=== PATIENT | female | born 1945 | race American Indian/Alaskan Native ===

== ENCOUNTER 2017-12-20 10:48 | Emergency (ER) | payer MEDICARE, MEDICAID ==
[2017-12-20 10:50] VITALS: BMI 34.7
[2017-12-20 10:56] VITALS: BP 168/72; PULSE 85; RESP 20; TEMP 98.7; O2SAT 93
== END 2017-12-20 11:06 | disposition left against medical advice (07) ==
LOC: MERGE 10:48 → ED 10:48
DX: Z02.89 Encounter for other administrative examinations (principal); R05 Cough

== ENCOUNTER 2018-01-17 10:10 | Inpatient (IN) | payer MEDICAID, MEDICARE, OTHER ==
[2018-01-17 10:26] VITALS: BMI 35.1
[2018-01-17 11:35] LABS: BASO # 0.04 K/mm3 (0.0-2.0); BASO % 0.2 % (0.0-3.0); EOS # 1.8 (0.0-0.7); GRAN # 15.53 (1.4-6.5); GRAN % 67.7 % (50.0-68.0); HEMOGLOBIN 12.1 g/dL (12.0-16.0); LYMPH # 4.5 (1.2-3.4); LYMPH % 19.4 % (22.0-35.0); MEAN CELL VOLUME 88.2 fl (80.0-105.0); MEAN CORPUSCULAR HEMOGLOBIN 27.4 pg (25.0-35.0); MEAN PLATELET VOLUME 10.2 fl (7.0-11.0); MONO # 1.1 (0.1-0.6); MONO % 4.7 % (1.0-6.0); RBC 4.42 10^6/uL (3.5-6.1); RED CELL DISTRIBUTION WIDTH 14.2 % (11.5-14.5)
[2018-01-17] MEDS ORDERED: Azithromycin 500MG/NS 250ml 500 MG/250 ML BAG IVPB STA (12:16)
[2018-01-17] MEDS ORDERED: cefTRIAXone 1 gm 1 GM/100 ML BAG IVPB STA (12:17)
[2018-01-17] MEDS ORDERED: Albuterol-Ipratrop 3 mg / 0.5 (3 ml) UD IH STA (12:17)
--- NOTE | 2018-01-17 12:32 | RAD ---
HISTORY: cough r/o infiltrate COMPARISON: Chest radiographs 12/20/2017 TECHNIQUE: Chest PA and lateral FINDINGS: LUNGS: No active pulmonary disease. PLEURA: No significant pleural effusion identified. No pneumothorax apparent. CARDIOVASCULAR: Normal. OSSEOUS STRUCTURES: No significant abnormalities. VISUALIZED UPPER ABDOMEN: Normal. OTHER FINDINGS: None. IMPRESSION: No interval acute cardiopulmonary disease appreciated.
[2018-01-17 12:57] LABS: ALB/GLOB RATIO 1.1 (1.1-1.8); ALBUMIN 4.4 g/dL (3.0-4.8); CALCIUM 10.5 mg/dL (8.4-10.5)
[2018-01-17] MEDS ORDERED: Magnesium Sulfate 2 GM in Sodium Chloride 0.9% 100 ML IVPB ONE (12:59)
[2018-01-17] MEDS: Albuterol-Ipratrop 3 mg / 0.5 (3 ml) UD IH SCH ×4 (13:06→19:41)
[2018-01-17 13:15] LABS: B-TYPE NATRIURETIC PEPTIDE 78.5 pg/mL (0-450)
[2018-01-17 14:16] LABS: TROPONIN I 0.01 ng/mL
--- NOTE | 2018-01-17 14:36 | ED PDOC ---
Arrival/HPI - General Chief Complaint: Cough, Cold, Congestion Time Seen by Provider: 01/17/18 10:30 Historian: Patient - History of Present Illness Narrative History of Present Illness (Text): 01/17/18 14:33 Dolly Reyna is a 72 year old female sent by the clinic fro progressive cough and wheeze for 1-2 months. Patient reports slight shortness of breath. Patient was given cough medication and antibiotics with the clinic with minimal relief. Patient denies smokinh, history of COPD or asthma, any fevers, chills, chest pain, abdominal pain, nausea, vomiting, diarrhea, back pain, neck pain, urinary symptoms, headache, dizziness, or any other complaint. Time/Duration: > month (1-2 months) Symptom Onset: Gradual Symptom Course: Unchanged Context: Home Past Medical History - Provider Review Nursing Documentation Reviewed: Yes - Cardiac Hx Hypertension: Yes - Pulmonary Hx Respiratory Disorders: No Hx Chronic Obstructive Pulmonary Disease (COPD): Yes - Neurological Hx Neurological Disorder: No - HEENT Hx HEENT Disorder: No - Renal Hx Renal Disorder: No - Endocrine/Metabolic Hx Diabetes Mellitus Type 2: Yes - Hematological/Oncological Hx Blood Disorders: No - Integumentary Hx Dermatological Disorder: No - Musculoskeletal/Rheumatological Hx Musculoskeletal Disorders: No - Gastrointestinal Hx Gastrointestinal Disorders: No - Genitourinary/Gynecological Hx Genitourinary Disorders: No - Psychiatric Hx Psychophysiologic Disorder: No Hx Substance Use: No - Surgical History Hx Hysterectomy: Yes - Suicidal Assessment Feels Threatened In Home Enviroment: No Family/Social History - Physician Review Nursing Documentation Reviewed: Yes Family/Social History: Unknown Family HX Smoking Status: Never Smoked Hx Alcohol Use: No Hx Substance Use: No Allergies/Home Meds Allergies/Adverse Reactions: Allergies No Known Allergies Allergy (Verified 01/17/18 10:16) Home Medications: Home Meds Medication Instructions Recorded Confirmed Lovastatin 40 mg PO DAILY 03/11/14 01/17/18 Gabapentin [Neurontin] 300 mg PO DAILY 12/20/17 01/17/18 GlipiZIDE [Glucotrol] 5 mg PO TID 12/20/17 01/17/18 Insulin Glargine, Recombina 25 unit INJ DAILY 12/20/17 01/17/18 [Lantus] Acarbose [Precose] 50 mg PO TID 01/17/18 01/17/18 Aspirin 325 mg PO DAILY 01/17/18 01/17/18 Hydrochlorothiazide [Microzide] 25 mg PO DAILY 01/17/18 01/17/18 Loratadine [Allerclear] 10 mg PO DAILY 01/17/18 01/17/18 Metoprolol Tartrate [Lopressor] 50 mg PO BID 01/17/18 01/17/18 amLODIPine [Norvasc] 5 mg DAILY 01/17/18 01/17/18 Review of Systems - Physician Review All systems were reviewed & negative as marked: Yes - Review of Systems Constitutional: Normal. absent: Fevers Eyes: Normal ENT: Normal Respiratory: Cough Cardiovascular: Normal. absent: Chest Pain, Palpitations Gastrointestinal: Normal. absent: Abdominal Pain, Diarrhea, Nausea, Vomiting Genitourinary Female: Normal. absent: Dysuria, Frequency, Hematuria, Urine Output Changes Musculoskeletal: Normal. absent: Back Pain, Neck Pain Skin: Normal. absent: Rash Neurological: Normal. absent: Headache, Dizziness Endocrine: Normal Hemo/Lymphatic: Normal Psychiatric: Normal Physical Exam Vital Signs Reviewed: Yes Vital Signs Temp Pulse Resp BP Pulse Ox 01/17/18 16:05 98.0 F 80 18 138/90 94 L 01/17/18 16:04 98.0 F 80 19 139/89 94 L 01/17/18 13:55 79 20 137/68 100 01/17/18 12:55 75 18 134/73 98 01/17/18 10:17 98.3 F 67 20 155/81 H 94 L Temperature: Afebrile Blood Pressure: Hypertensive Pulse: Regular Respiratory Rate: Normal Appearance: Positive for: Well-Appearing, Non-Toxic, Comfortable Pain Distress: None Mental Status: Positive for: Alert and Oriented X 3 Finger Stick Blood Glucose: 101 - Systems Exam Head: Present: Atraumatic, Normocephalic Pupils: Present: PERRL Extroacular Muscles: Present: EOMI Conjunctiva: Present: Normal Mouth: Present: Moist Mucous Membranes Neck: Present: Normal Range of Motion Respiratory/Chest: Present: Wheezes (wheeze bilaterally). No: Respiratory Distress, Accessory Muscle Use Cardiovascular: Present: Regular Rate and Rhythm, Normal S1, S2. No: Murmurs Abdomen: Present: Normal Bowel Sounds. No: Tenderness, Distention, Peritoneal Signs Back: Present: Normal Inspection Upper Extremity: Present: Normal Inspection. No: Cyanosis, Edema Lower Extremity: Present: Normal Inspection. No: Edema Neurological: Present: GCS=15, CN II-XII Intact, Speech Normal Skin: Present: Warm, Dry, Normal Color. No: Rashes Psychiatric: Present: Alert, Oriented x 3, Normal Insight, Normal Concentration Medical Decision Making ED Course and Treatment: 01/17/18 14:39 Impression: 72 year old female complaining of a progressive cough and wheeze for 1-2 months. Plan: -- EKG -- Duoneb -- Magnesium Sulfate -- SOLU-Medrol -- Rocephin -- Zithromax -- Blood Culture -- Reassess and disposition Progress Notes: EKG reviewed, shows Sinus at 68 bpm. Left axis deviation Pt feels better after emergency department treatment Case discussed with Dr. Arriaga, who is aware and agrees with plan. Accepts pt into his service. Admits pt to hospital service on medical floor. - Lab Interpretations Lab Results: 01/17/18 11:15 01/17/18 11:00 Lab Results 01/17/18 13:11: POC Glucose (mg/dL) 101 01/17/18 11:30: Influenza Typ A,B (EIA) Negative for flu a/b 01/17/18 11:15: WBC 23.0 H, RBC 4.42, Hgb 12.1, Hct 39.0, MCV 88.2, MCH 27.4, MCHC 31.0, RDW 14.2, Plt Count 413, MPV 10.2, Gran % 67.7, Lymph % (Auto) 19.4 L , [place] % (Auto) 4.7, Eos % (Auto) 8.0 H, Baso % (Auto) 0.2, Gran # 15.53 H, Lymph # (Auto) 4.5 H, [place] # (Auto) 1.1 H, Eos # (Auto) 1.8 H, Baso # (Auto) 0.04 01/17/18 11:00: Sodium 141, Potassium 4.2, Chloride 100, Carbon Dioxide 33, Anion Gap 13, BUN 22 H, Creatinine 1.1, Est GFR ( Amer) 59, Est GFR (Non- Af Amer) 49, Random Glucose 48 L*, Calcium 10.5, Magnesium 2.0, Total Bilirubin 0.2, AST 28, ALT 25, Alkaline Phosphatase 89, Lactate Dehydrogenase 572, Total Creatine Kinase 207, Troponin I 0.01, NT-Pro-B Natriuret Pep 78.5, Total Protein 8.3, Albumin 4.4, Globulin 3.9, Albumin/Globulin Ratio 1.1 - RAD Interpretation Radiology Orders: 01/17/18 10:31 CHEST TWO VIEWS (PA/LAT) [RAD] Stat 01/17/18 15:23 CHEST W/O & HIGH RES CHEST [CT] Routine - Medication Orders Current Medication Orders: Acetaminophen (Tylenol 325mg Tab) 650 mg PO Q4 PRN PRN Reason: Fever >100.4 F Albuterol/Ipratropium (Duoneb 3 Mg/0.5 Mg (3 Ml) Ud) 3 ml IH [id number] TABITHA Albuterol/Ipratropium (Duoneb 3 Mg/0.5 Mg (3 Ml) Ud) 3 ml IH Q2H PRN PRN Reason: Shortness of Breath Amlodipine Besylate (Norvasc) 5 mg PO DAILY TABITHA Aspirin (Aspirin) 325 mg PO DAILY TABITHA Atorvastatin Calcium (Lipitor) 10 mg PO DIN TABITHA Gabapentin (Neurontin) 300 mg PO DAILY TABITHA PRN Reason: Protocol Heparin Sodium (Porcine) (Heparin) 5,000 units SC Q8 TABITHA PRN Reason: Protocol Hydrochlorothiazide (Hydrodiuril) 25 mg PO DAILY TABITHA Ceftriaxone Sodium (Rocephin 1 Gram Ivpb) 1 gm in 100 mls @ 100 mls/hr IVPB DAILY TABITHA PRN Reason: Protocol Azithromycin (Zithromax 500mg In Ns) 500 mg in 250 mls @ 167 mls/hr IVPB DAILY TABITHA PRN Reason: Protocol Insulin Human Regular (Humulin R Low) 0 units SC ACHS TABITHA PRN Reason: Protocol Last Admin: 01/17/18 16:50 Dose: 2 units MAR Blood Glucose Document 01/17/18 16:50 DSZ (Rec: 01/17/18 16:50 DSZ [facility] [id number]) Blood Glucose Finger Stick Blood Glucose (70-120) 239 Subcutaneous Administrations Document 01/17/18 16:50 DSZ (Rec: 01/17/18 16:50 DSZ [facility] [id number]) Injection Site MAR Injection Site Right Abdomen Charges for Administration # of Subcutaneous Administrations 1 Methylprednisolone (Solu-Medrol) 40 mg IVP Q8 [facility] Metoprolol Tartrate (Lopressor) 50 mg PO BID [facility] Ondansetron HCl (Zofran Inj) 4 mg IVP Q4H PRN PRN Reason: Nausea/Vomiting Pantoprazole Sodium (Protonix Ec Tab) 40 mg PO 0600 [facility] Discontinued Medications Albuterol/Ipratropium (Duoneb 3 Mg/0.5 Mg (3 Ml) Ud) 3 ml IH STAT STA Stop: 01/17/18 12:18 Last Admin: 01/17/18 12:46 Dose: 3 ml Albuterol/Ipratropium (Duoneb 3 Mg/0.5 Mg (3 Ml) Ud) 3 ml IH Q15M TABITHA Stop: 01/17/18 13:31 Last Admin: 01/17/18 13:29 Dose: 3 ml Amlodipine Besylate (Norvasc) 5 mg PO STAT STA Stop: 01/17/18 17:40 Hydrochlorothiazide (Hydrodiuril) 25 mg PO STAT STA Stop: 01/17/18 17:40 Ceftriaxone Sodium (Rocephin 1 Gram Ivpb) 1 gm in 100 mls @ 100 mls/hr IVPB STAT STA PRN Reason: Protocol Stop: 01/17/18 13:16 Last Admin: 01/17/18 12:45 Dose: 100 mls/hr eMAR Start Stop Document 01/17/18 12:45 SRE (Rec: 01/17/18 12:46 SRE [id number]) Intravenous Solution Start Date 01/17/18 Start Time 12:40 End Date 01/17/18 End time 13:40 Total Infusion Time 60 Azithromycin (Zithromax 500mg In Ns) 500 mg in 250 mls @ 167 mls/hr IVPB STAT STA PRN Reason: Protocol Stop: 01/17/18 13:45 Last Admin: 01/17/18 13:36 Dose: 167 mls/hr eMAR Start Stop Document 01/17/18 13:36 SRE (Rec: 01/17/18 13:37 SRE [id number]) Intravenous Solution Start Date 01/17/18 Start Time 13:36 End Date 01/17/18 End time 15:10 Total Infusion Time 94 Magnesium Sulfate 2 gm/ Sodium (Chloride) 104 mls @ 102 mls/hr IVPB ONCE ONE Stop: 01/17/18 14:00 Last Admin: 01/17/18 13:15 Dose: 102 mls/hr eMAR Start Stop Document 01/17/18 13:15 SRE (Rec: 01/17/18 13:15 SRE [id number]) Intravenous Solution Start Date 01/17/18 Start Time 13:15 End Date 01/17/18 End time 14:15 Total Infusion Time 60 Methylprednisolone (Solu-Medrol) 125 mg IVP STAT STA Stop: 01/17/18 12:59 Last Admin: 01/17/18 13:06 Dose: 125 mg IVP Administration Document 01/17/18 13:06 SRE (Rec: 01/17/18 13:06 SRE [id number]) Charges for Administration # of IVP Administrations 1 - Scribe Statement The provider has reviewed the documentation as recorded by the Scribe Mercy Amezquita All medical record entries made by the Scribe were at my direction and personally dictated by me. I have reviewed the chart and agree that the record accurately reflects my personal performance of the history, physical exam, medical decision making, and the department course for this patient. I have also personally directed, reviewed, and agree with the discharge instructions and disposition. Disposition/Present on Arrival - Present on Arrival Any Indicators Present on Arrival: No History of DVT/PE: No History of Uncontrolled Diabetes: No Urinary Catheter: No History of Decub. Ulcer: No History Surgical Site Infection Following: None - Disposition Have Diagnosis and Disposition been Completed?: Yes Diagnosis: Bronchitis, Pneumonia Disposition: HOSPITALIZED Disposition Time: 13:00 Condition: STABLE
[2018-01-17] MEDS ORDERED: Albuterol-Ipratrop 3 mg / 0.5 (3 ml) UD IH PRN (15:03)
[2018-01-17 15:47] LABS: ARTERIAL BLOOD GAS HCO3 27.1 mmol/L (21-28); ARTERIAL BLOOD GAS O2 SAT 91.5 % (95-98); ARTERIAL BLOOD GAS PCO2 49 mm/Hg (35-45); ARTERIAL BLOOD GAS PH 7.35 (7.35-7.45); ARTERIAL BLOOD GAS TCO2 28.6 mmol.L (22-28)
--- NOTE | 2018-01-17 15:57 | CP.PCM.HP ---
<Jayna Martin - Last Filed: 01/17/18 17:38> History of Present Illness - History of Present Illness History of Present Illness: CC: Cough for 2 months. Patient is a 72 y/o with PMHx of htn, insulin dependent diabetes mellitus, hld, mental retardation presenting with non productive cough for 2 months. As per patient's sister, the cough has been getting worst and is now accompanied with wheezes. Patient saw PMD, was prescribed inhalers with no improvement. Patient was at the urgent care and was transferred over to the ED by Dr Avendano. Patient and patient's sister denies fever, chills, no chest pain, no shortness of breath. Cough is worst at night. Denies pillow orthopnea. No history of CAD, stress tests or cardiac cath. Patient barely ambulates due to gait instability, however, denies excertional dyspnea. No history of tobacco abuse, denies second hand smoking. No occupational exposure. In the ED glucose was 48. Patient last injected insulin last night, states she uses 52 unit before bed time and ate breakfast this morning. Patient was also noted to be wheezing, was sating in the 94-98 on room air. Patient was giving solu-medrol and abx. PMHx: IDDM2, HTN, mental retardation, neuropathy PSHx: hysterectomy FMHx: denies family history of cancers Social: denies tobacco, alcohol and illicit drug use. Walks with a cane. Home meds: as per chart. Allergy: NKDA. Present on Admission - Present on Admission Any Indicators Present on Admission: Yes History of DVT/PE: No History of Uncontrolled Diabetes: Yes Urinary Catheter: No Decubitus Ulcer Present: No Review of Systems - Constitutional Constitutional: absent: Chills, Fatigue, Fever, Headache, Lethargy, Malaise, Night Sweats, Snoring, Weight Gain, Weight Loss, Weakness - EENT Eyes: absent: Blurred Vision Ears: absent: Disequilibrium Nose/Mouth/Throat: absent: Dysphagia, Halitosis, Hoarsness, Sore Throat - Cardiovascular Cardiovascular: absent: Chest Pain, Chest Pain at Rest, Chest Pain with Activity , Claudication, Dyspnea, Dyspnea on Exertion, Irregular Heart Rhythm, Leg Edema , Leg Ulcers, Lightheadedness, Orthopnea, Palpitations, Paroxysmal Nocturnal Dyspnea, Pedal Edema, Radiating Pain, Rapid Heart Rate, Slow Heart Rate, Syncope - Respiratory Respiratory: Cough, Wheezing. absent: Dyspnea, Hemoptysis, Snoring, Stridor, Pain on Inspiration, Excessive Mucous Production, Change in Mucous Color, Pain with Coughing - Gastrointestinal Gastrointestinal: absent: Abdominal Pain, Belching, Bloating, Constipation, Cramping, Diarrhea, Dyspepsia, Dysphagia, Heartburn, Hematemesis, Nausea, Odynophagia - Genitourinary Genitourinary: absent: Difficulty Urinating, Dysuria, Hematuria, Urinary Urgency - Musculoskeletal Musculoskeletal: Abnormal Gait, Other (Uses a cane to ambulate.) - Neurological Neurological: absent: Dizziness, Headaches - Psychiatric Psychiatric: Other (Mental retardation) Past Patient History - Infectious Disease Hx of Infectious Diseases: None - Tetanus Immunizations Tetanus Immunization: Unknown - Past Medical History & Family History Past Medical History?: Yes - Past Social History Smoking Status: Never Smoked Alcohol: None Drugs: Denies Home Situation {Lives}: With Family - CARDIAC Hx Hypertension: Yes - PULMONARY Hx Respiratory Disorders: No Hx Chronic Obstructive Pulmonary Disease (COPD): Yes - NEUROLOGICAL Hx Neurological Disorder: No - HEENT Hx HEENT Problems: No - RENAL Hx Chronic Kidney Disease: No - ENDOCRINE/METABOLIC Hx Diabetes Mellitus Type 2: Yes - HEMATOLOGICAL/ONCOLOGICAL Hx Blood Disorders: No - INTEGUMENTARY Hx Dermatological Problems: No - MUSCULOSKELETAL/RHEUMATOLOGICAL Hx Musculoskeletal Disorders: No - GASTROINTESTINAL Hx Gastrointestinal Disorders: No - GENITOURINARY/GYNECOLOGICAL Hx Genitourinary Disorders: No - PSYCHIATRIC Hx Psychophysiologic Disorder: No Hx Substance Use: No - SURGICAL HISTORY Hx Hysterectomy: Yes Meds Allergies/Adverse Reactions: Allergies Allergy/AdvReac Type Severity Reaction Status Date / Time No Known Allergies Allergy Verified 01/17/18 10:16 Physical Exam - Constitutional Appears: No Acute Distress, Chronically Ill - Head Exam Head Exam: ATRAUMATIC, NORMAL INSPECTION, NORMOCEPHALIC - Eye Exam Eye Exam: EOMI, Normal appearance, PERRL. absent: Scleral icterus Pupil Exam: NORMAL ACCOMODATION, PERRL - ENT Exam ENT Exam: Mucous Membranes Moist - Neck Exam Neck exam: Positive for: Normal Inspection - Respiratory Exam Respiratory Exam: Decreased Breath Sounds (at the bases.), Wheezes (at the apices carmen), NORMAL BREATHING PATTERN. absent: Accessory Muscle Use, Chest Wall Tenderness, Prolonged Expiratory Phase, Rales, Rhonchi, Respiratory Distress, Stridor - Cardiovascular Exam Cardiovascular Exam: REGULAR RHYTHM, RRR, +S1, +S2. absent: Bradycardia, Tachycardia, Diastolic murmur, Gallop, Irregular Rhythm, JVD, Rubs, Systolic Murmur - GI/Abdominal Exam GI & Abdominal Exam: Normal Bowel Sounds, Soft. absent: Diminished Bowel Sounds , Distended (obese abdomen.), Firm, Guarding, Hernia, Mass, Rebound, Rigid, Tenderness - Extremities Exam Extremities exam: Positive for: normal inspection. Negative for: pedal edema, tenderness - Back Exam Back exam: NORMAL INSPECTION - Neurological Exam Neurological exam: Alert, Oriented x3, Reflexes Normal - Psychiatric Exam Psychiatric exam: Normal Affect, Normal Mood - Skin Skin Exam: Dry, Normal Color, Warm Results - Vital Signs Recent Vital Signs: Last Vital Signs Temp 98.3 F 01/17/18 10:17 Pulse 79 01/17/18 13:55 Resp 20 01/17/18 13:55 BP 137/68 01/17/18 13:55 Pulse Ox 100 01/17/18 13:55 - Labs Result Diagrams: 01/17/18 11:15 01/17/18 11:00 Labs: Laboratory Results - last 24 hr 01/17/18 15:44 pCO2 49 H pO2 53.0 L HCO3 27.1 ABG pH 7.35 ABG Total CO2 28.6 H ABG O2 Saturation 91.5 L ABG Base Excess 0.8 ABG Potassium 4.0 Sodium 139.0 Chloride 105.0 Glucose 226 H Lactate 2.8 H FiO2 21.0 Arterial Blood Potassium 4.0 - EKG Data EKG Interpreted by: Myself EKG shows normal: Sinus rhythm, ST-T waves (Non sepcific ST/T wave changes.) Rate: Normal Assessment & Plan - Assessment and Plan (Free Text) Assessment: Patient is a 72 y/o with PMHx of htn, insulin dependent diabetes mellitus, mental retardation presenting with non productive cough for 2 months, failed outpatient treatment. Plan: 1) Non productive cough- likely due to COPD exacerbation, R/o pneumonia - R/o malignancy, r/o atypical ACS presentation, versus adult onset asthma/Gerd - Less likely CHF due to normal pro-bnp, less likely ACEI induced cough. - Will obtain procal - Will obtain echo to rule out valvular component. - Chest x-ray with non specific diffuse infiltrations on the right side, - will obtain high resolution CT to evaluate lung parenchyma - Influenza negative - Will start solumedrol 40 q8 for possible copd exacerbation - Rocephin/Zithromax for possible pneumonia pending procal. - Duoneb standing dose and prn - ABG with likely mixed venous blood, patient appears comfortable, will consider nasal cannula prn. - Will consider pulm consult, an PFTs depending on the above work up. 2) Leukocytosis and mildly elevated lactic acid, r/o sepsis - Afebrile, and no tachycardia. - will obtain ua, blood and urine culture - on rocephin and zithromax - tylenol pro for fever 3) Uncontrolled diabetes mellitus - Glucose on presentation was 48, which improved with po intake - will hold off home insulin and po meds - Obtain hgba1c - will consider adding levemir. - Insulin sliding scale, and fingerstick achs - Carbohydrate controlled diet. 4) HTN- will resume htcz, Norvasc and lopressor. - Patient is also on high dose asa at home, will resume. 5) Neuropathy- will resume home gabapentin 6) HLD- continue with Lipitor 7) DVT/Gi prophylaxis: heparin sc and protonix. 8) Gait instability- PT eval. Patient seen, examined and case discussed with Dr Ness. - Date & Time Date: 01/17/18 Time: 17:00 <Rosalina Ness - Last Filed: 01/18/18 10:51> Results - Vital Signs Recent Vital Signs: Last Vital Signs Temp 98.2 F 01/18/18 06:00 Pulse 87 01/18/18 10:10 Resp 18 01/18/18 06:00 BP 155/85 H 01/18/18 10:10 Pulse Ox 96 01/18/18 06:00 - Labs Result Diagrams: 01/18/18 07:00 01/18/18 07:00 Labs: Laboratory Results - last 24 hr 01/17/18 01/17/18 01/17/18 15:44 16:22 17:10 WBC RBC Hgb Hct MCV MCH MCHC RDW Plt Count MPV Gran % Lymph % (Auto) Citrus % (Auto) Eos % (Auto) Baso % (Auto) Gran # Lymph # (Auto) Citrus # (Auto) Eos # (Auto) Baso # (Auto) Neutrophils % (Manual) Lymphocytes % (Manual) Monocytes % (Manual) Platelet Evaluation pCO2 49 H pO2 53.0 L HCO3 27.1 ABG pH 7.35 ABG Total CO2 28.6 H ABG O2 Saturation 91.5 L ABG Base Excess 0.8 ABG Potassium 4.0 VBG pH VBG pCO2 VBG HCO3 VBG Total CO2 VBG O2 Sat (Calc) VBG Base Excess VBG Potassium Sodium 139.0 Chloride 105.0 Glucose 226 H Lactate 2.8 H FiO2 21.0 Potassium Carbon Dioxide Anion Gap BUN Creatinine Est GFR ( Amer) Est GFR (Non-Af Amer) POC Glucose (mg/dL) 239 H Random Glucose Lactic Acid Calcium Troponin I Procalcitonin 0.07 L Arterial Blood Potassium 4.0 Venous Blood Potassium Urine Color Urine Appearance Urine pH Ur Specific Geddes Urine Protein Urine Glucose (UA) Urine Ketones Urine Blood Urine Nitrate Urine Bilirubin Urine Urobilinogen Ur Leukocyte Esterase Urine RBC Urine WBC Ur Epithelial Cells Amorphous Sediment Urine Bacteria 01/17/18 01/17/18 01/17/18 17:10 19:10 20:44 WBC RBC Hgb Hct MCV MCH MCHC RDW Plt Count MPV Gran % Lymph % (Auto) Citrus % (Auto) Eos % (Auto) Baso % (Auto) Gran # Lymph # (Auto) Citrus # (Auto) Eos # (Auto) Baso # (Auto) Neutrophils % (Manual) Lymphocytes % (Manual) Monocytes % (Manual) Platelet Evaluation pCO2 pO2 46 HCO3 ABG pH ABG Total CO2 ABG O2 Saturation ABG Base Excess ABG Potassium VBG pH 7.35 VBG pCO2 49.0 VBG HCO3 27.1 VBG Total CO2 28.6 H VBG O2 Sat (Calc) 86.7 H VBG Base Excess 0.8 VBG Potassium 4.8 Sodium 135.0 Chloride 98.0 Glucose 402 H* D Lactate 4.1 H* FiO2 21.0 Potassium Carbon Dioxide Anion Gap BUN Creatinine Est GFR ( Amer) Est GFR (Non-Af Amer) POC Glucose (mg/dL) 410 H* Random Glucose Lactic Acid Calcium Troponin I < 0.01 Procalcitonin Arterial Blood Potassium Venous Blood Potassium 4.8 Urine Color Urine Appearance Urine pH Ur Specific Geddes Urine Protein Urine Glucose (UA) Urine Ketones Urine Blood Urine Nitrate Urine Bilirubin Urine Urobilinogen Ur Leukocyte Esterase Urine RBC Urine WBC Ur Epithelial Cells Amorphous Sediment Urine Bacteria 01/17/18 01/18/18 01/18/18 20:50 01:05 03:03 WBC RBC Hgb Hct MCV MCH MCHC RDW Plt Count MPV Gran % Lymph % (Auto) Citrus % (Auto) Eos % (Auto) Baso % (Auto) Gran # Lymph # (Auto) Citrus # (Auto) Eos # (Auto) Baso # (Auto) Neutrophils % (Manual) Lymphocytes % (Manual) Monocytes % (Manual) Platelet Evaluation pCO2 pO2 HCO3 ABG pH ABG Total CO2 ABG O2 Saturation ABG Base Excess ABG Potassium VBG pH VBG pCO2 VBG HCO3 VBG Total CO2 VBG O2 Sat (Calc) VBG Base Excess VBG Potassium Sodium Chloride Glucose Lactate FiO2 Potassium Carbon Dioxide Anion Gap BUN Creatinine Est GFR ( Amer) Est GFR (Non-Af Amer) POC Glucose (mg/dL) 315 H Random Glucose Lactic Acid Calcium Troponin I < 0.01 Procalcitonin Arterial Blood Potassium Venous Blood Potassium Urine Color Yellow Urine Appearance Clear Urine pH 6.0 Ur Specific Geddes 1.020 Urine Protein 30 H Urine Glucose (UA) >=1000 Urine Ketones Trace H Urine Blood Moderate H Urine Nitrate Negative Urine Bilirubin Negative Urine Urobilinogen 0.2 Ur Leukocyte Esterase Negative Urine RBC 10 - 15 Urine WBC 0 - 2 Ur Epithelial Cells 4 - 5 Amorphous Sediment Few Urine Bacteria Small 01/18/18 01/18/18 01/18/18 07:00 07:00 07:00 WBC 29.6 H* D RBC 4.09 Hgb 11.1 L Hct 34.7 L MCV 84.8 D MCH 27.1 MCHC 32.0 RDW 13.8 Plt Count 458 H MPV 10.1 Gran % 91.2 H Lymph % (Auto) 6.9 L Citrus % (Auto) 1.8 Eos % (Auto) 0.0 L Baso % (Auto) 0.1 Gran # 27.01 H Lymph # (Auto) 2.1 Citrus # (Auto) 0.5 Eos # (Auto) 0.0 Baso # (Auto) 0.02 Neutrophils % (Manual) 90 H Lymphocytes % (Manual) 7 L Monocytes % (Manual) 3 Platelet Evaluation High pCO2 pO2 HCO3 ABG pH ABG Total CO2 ABG O2 Saturation ABG Base Excess ABG Potassium VBG pH VBG pCO2 VBG HCO3 VBG Total CO2 VBG O2 Sat (Calc) VBG Base Excess VBG Potassium Sodium 139 Chloride 98 Glucose Lactate FiO2 Potassium 4.5 Carbon Dioxide 27 Anion Gap 18 BUN 25 H Creatinine 1.1 Est GFR ( Amer) 59 Est GFR (Non-Af Amer) 49 POC Glucose (mg/dL) Random Glucose 298 H Lactic Acid 3.3 H Calcium 10.3 Troponin I Procalcitonin Arterial Blood Potassium Venous Blood Potassium Urine Color Urine Appearance Urine pH Ur Specific G[place]des Urine Protein Urine Glucose (UA) Urine Ketones Urine Blood Urine Nitrate Urine Bilirubin Urine Urobilinogen Ur Leukocyte Esterase Urine RBC Urine WBC Ur Epithelial Cells Amorphous Sediment Urine Bacteria Attending/Attestation - Attestation I have personally seen and examined this patient.: Yes I have fully participated in the care of the patient.: Yes I have reviewed all pertinent clinical information: Yes Notes (Text): 01/18/18 10:27 Attending note; Patient seen and examined with resident in the ER. Patient is a 72 -year-old female with PMHx of hypertension,, insulin dependent diabetes mellitus, hyperlipidemia, mild mental retardation presenting with non productive cough for 2 months. As per patient's sister, the cough has been getting worst and is now accompanied with wheezes. The patient failed outpatient therapy. Noted on DuoNeb treatment, IV Solu-Medrol. X-rays negative for infiltrate. CT chest ordered. Rule out GERD; started on Protonix. Leukocytosis; cultures ordered. Patient is afebrile and nontoxic. Currently on Rocephin and Zithromax for bronchitis. Monitor closely. Diabetes; continue insulin treatment. Upon discharge patient will follow-up with PMD Dr. Daniels. 01/18/18 10:51
[2018-01-17] MEDS: Insulin Reg-LOW-Coverage SC SCH ×2 (16:50→21:19)
[2018-01-17 20:06] LABS: VENOUS BLOOD GAS BASE EXCESS 0.8 mmol/L (0.0-2.0); VENOUS BLOOD GAS PO2 46 mm/Hg (30-55); VENOUS BLOOD PH 7.35 (7.32-7.43)
--- NOTE | 2018-01-17 20:19 | CT ---
EXAM: CT Chest Without Intravenous Contrast CLINICAL HISTORY: 72 years old, female; Signs and symptoms; Cough and other: Chronic cough; Symptoms not specified TECHNIQUE: Axial computed tomography images of the chest without intravenous contrast. All CT scans at this facility use one or more dose reduction techniques, viz.: automated exposure control; ma/kV adjustment per patient size (including targeted exams where dose is matched to indication; i.e. head); or iterative reconstruction technique. Coronal and sagittal reformatted images were created and reviewed. COMPARISON: DX - CHEST TWO VIEWS (PA/LAT) 2018-01-17 11:42 FINDINGS: Lungs: Bronchial wall thickening. No mass. No consolidation. Pleural space: No pneumothorax. No significant effusion. Heart: No cardiomegaly. No significant pericardial effusion. Bones: No acute abnormality as visualized. Vasculature: Atherosclerosis. No thoracic aortic aneurysm. Limited evaluation without contrast. Lymph nodes: Shotty nodes. Thickened distal esophagus, question minimal hiatal hernia. Further evaluation recommended. Partial visualization of hypoattenuating lesion in left kidney, appears to represent a cyst. Retained fecal material in the colon. IMPRESSION: Bronchial wall thickening, may be of infectious versus inflammatory etiology. Thickened distal esophagus, question minimal hiatal hernia. Further evaluation recommended. Partial visualization of hypoattenuating lesion in left kidney, appears to represent a cyst. Retained fecal material in the colon. Additional details/findings as above.
[2018-01-17] MEDS: MethylPREDNISolone 40 mg Vial IVP SCH (21:19)
[2018-01-17] MEDS: Sodium Chloride 0.9% 1,000 ML IV SCH (21:28)
[2018-01-17 21:39] LABS: URINE BILIRUBIN NEGATIVE (NEGATIVE); URINE BLOOD MODERATE (NEGATIVE); URINE GLUCOSE (UA) >=1000 mg/dL (NEGATIVE); URINE LEUKOCYTE ESTERASE NEGATIVE Leu/uL (NEGATIVE); URINE PROTEIN 30 mg/dL (<30 mg/dL); URINE UROBILINOGEN 0.2 E.U./dL (<1 E.U./dL)
[2018-01-17 21:40] LABS: URINE APPEARANCE CLEAR (CLEAR); URINE COLOR YELLOW (YELLOW)
[2018-01-17 21:44] LABS: URINE AMORPHOUS SEDIMENT FEW; URINE BACTERIA SMALL (NEG); URINE WBC 0 - 2 /hpf (0-6)
--- NOTE | 2018-01-17 23:29 | CARD ---
APPROVED REPORT EKG Measurement Heart [id number] <Conclusion> Normal sinus rhythm Nonspecific T wave abnormality Abnormal ECG
[2018-01-18] MEDS: Insulin Detemir 100 units/ml Vial (Levemir) SC SCH ×2 (00:35→21:50)
[2018-01-18] MEDS: Albuterol-Ipratrop 3 mg / 0.5 (3 ml) UD IH SCH ×4 (01:47→19:33)
[2018-01-18] MEDS: Pantoprazole 40 mg EC Tab PO SCH (05:50)
[2018-01-18] MEDS: MethylPREDNISolone 40 mg Vial IVP SCH ×3 (05:50→21:47)
[2018-01-18] MEDS: Sodium Chloride 0.9% 1,000 ML IV SCH (07:11)
[2018-01-18 07:37] LABS: BASO # 0.02 K/mm3 (0.0-2.0); BASO % 0.1 % (0.0-3.0); GRAN # 27.01 (1.4-6.5); GRAN % 91.2 % (50.0-68.0); HEMOGLOBIN 11.1 g/dL (12.0-16.0); LYMPH # 2.1 (1.2-3.4); LYMPH % 6.9 % (22.0-35.0); MEAN CORPUSCULAR HEMOGLOBIN 27.1 pg (25.0-35.0); MEAN PLATELET VOLUME 10.1 fl (7.0-11.0); MONO # 0.5 (0.1-0.6); MONO % 1.8 % (1.0-6.0); PLATELET COUNT 458 10^3/uL (120.0-450.0); RBC 4.09 10^6/uL (3.5-6.1); RED CELL DISTRIBUTION WIDTH 13.8 % (11.5-14.5)
[2018-01-18 07:48] LABS: CALCIUM 10.3 mg/dL (8.4-10.5); MEAN CELL VOLUME 84.8 fl (80.0-105.0); WHITE BLOOD COUNT 29.6 10^3/ul (4.5-11.0)
[2018-01-18] MEDS: Insulin Reg-LOW-Coverage SC SCH ×4 (08:08→21:49)
[2018-01-18 09:22] LABS: LYMPHOCYTE 7 % (22.0-35.0); MONOCYTE 3 % (1.0-6.0); NEUTROPHIL 90 % (50.0-70.0); PLATELET ESTIMATE HIGH (NORMAL)
[2018-01-18] MEDS ORDERED: Azithromycin 100 mg/5 ml Susp (15 ml) PO SCH (10:00)
[2018-01-18] MEDS ORDERED: Non Formulary Medication (Aspirin 325 mg) PO SCH (10:00)
[2018-01-18] MEDS: cefTRIAXone 1 gm 1 GM/100 ML BAG IVPB SCH (10:10)
[2018-01-18] MEDS: Azithromycin 500MG/NS 250ml 500 MG/250 ML BAG IVPB SCH (10:56)
--- NOTE | 2018-01-18 12:24 | CP.PCM.PN ---
<Gen Ramey - Last Filed: 01/18/18 11:54> Subjective - Date & Time of Evaluation Date of Evaluation: 01/18/18 Time of Evaluation: 11:54 - Subjective Subjective: Medicine Progress Note: Patient seen and assessed at bedside. No acute events overnight noted by patient or nursing staff. Patient reports that her coughing and wheezing have moderately improved since admission. She denies any fevers, chills, headache, chest pain, SOB, abdominal pain, N/V/D/C, urinary changes, skin changes or any numbness/tingling/weakness of any extremity. Objective - Vital Signs/Intake and Output Vital Signs (last 24 hours): Temp Pulse Resp BP Pulse Ox 98.2 F 87 18 155/85 H 96 01/18/18 06:00 01/18/18 10:10 01/18/18 06:00 01/18/18 10:10 01/18/18 06:00 Intake and Output: 01/18/18 01/18/18 06:59 18:59 Intake Total 2671 Balance 2671 - Medications Medications: Current Medications Acetaminophen (Tylenol 325mg Tab) 650 mg PO Q4 PRN PRN Reason: Fever >100.4 F Albuterol/Ipratropium (Duoneb 3 Mg/0.5 Mg (3 Ml) Ud) 3 ml IH [id number] [facility] Last Admin: 01/18/18 07:24 Dose: 3 ml Albuterol/Ipratropium (Duoneb 3 Mg/0.5 Mg (3 Ml) Ud) 3 ml IH Q2H PRN PRN Reason: Shortness of Breath Amlodipine Besylate (Norvasc) 5 mg PO DAILY [facility] Last Admin: 01/18/18 10:09 Dose: 5 mg Aspirin (Aspirin) 325 mg PO DAILY [facility] Last Admin: 01/18/18 10:09 Dose: 325 mg Atorvastatin Calcium (Lipitor) 10 mg PO DIN [facility] Last Admin: 01/17/18 18:20 Dose: 10 mg Gabapentin (Neurontin) 300 mg PO DAILY [facility] PRN Reason: Protocol Last Admin: 01/18/18 10:09 Dose: 300 mg Heparin Sodium (Porcine) (Heparin) 5,000 units SC Q8 [facility] PRN Reason: Protocol Last Admin: 01/18/18 05:50 Dose: 5,000 units Hydrochlorothiazide (Hydrodiuril) 25 mg PO DAILY [facility] Last Admin: 01/18/18 10:09 Dose: 25 mg Ceftriaxone Sodium (Rocephin 1 Gram Ivpb) 1 gm in 100 mls @ 100 mls/hr IVPB DAILY [facility] PRN Reason: Protocol Last Admin: 01/18/18 10:10 Dose: 100 mls/hr Azithromycin (Zithromax 500mg In Ns) 500 mg in 250 mls @ 167 mls/hr IVPB DAILY [facility] PRN Reason: Protocol Last Admin: 01/18/18 10:56 Dose: 167 mls/hr Sodium Chloride (Sodium Chloride 0.9%) 1,000 mls @ 100 mls/hr IV .Q10H [facility] Last Admin: 01/18/18 07:11 Dose: 100 mls/hr Insulin Detemir (Levemir) 20 unit SC HS [facility] Last Admin: 01/18/18 00:35 Dose: 20 unit Insulin Human Regular (Humulin R Low) 0 units SC ACHS [facility] PRN Reason: Protocol Last Admin: 01/18/18 11:40 Dose: 4 units Methylprednisolone (Solu-Medrol) 20 mg IVP Q8 [facility] Metoprolol Tartrate (Lopressor) 50 mg PO BID [facility] Last Admin: 01/18/18 10:10 Dose: 50 mg Ondansetron HCl (Zofran Inj) 4 mg IVP Q4H PRN PRN Reason: Nausea/Vomiting Pantoprazole Sodium (Protonix Ec Tab) 40 mg PO 0600 [facility] Last Admin: 01/18/18 05:50 Dose: 40 mg - Labs Labs: 01/18/18 07:00 01/18/18 07:00 - Constitutional Appears: Non-toxic, No Acute Distress - Head Exam Head Exam: ATRAUMATIC, NORMOCEPHALIC - Eye Exam Eye Exam: EOMI, PERRL Pupil Exam: NORMAL ACCOMODATION, PERRL - ENT Exam ENT Exam: Mucous Membranes Moist, Normal Exam - Neck Exam Neck Exam: Full ROM, Normal Inspection. absent: Lymphadenopathy - Respiratory Exam Respiratory Exam: Clear to Ausculation Bilateral, NORMAL BREATHING PATTERN. absent: Accessory Muscle Use, Chest Wall Tenderness, Decreased Breath Sounds, Prolonged Expiratory Phase, Rales, Rhonchi, Wheezes, Respiratory Distress, Stridor - Cardiovascular Exam Cardiovascular Exam: REGULAR RHYTHM, +S1, +S2. absent: Bradycardia, Tachycardia , Clicks, Diastolic murmur, Gallop, Irregular Rhythm, JVD, RRR, Rubs, +S4, Murmur - GI/Abdominal Exam GI & Abdominal Exam: Soft, Normal Bowel Sounds. absent: Distended, Firm, Guarding, Rigid, Tenderness, Rebound - Extremities Exam Extremities Exam: Full ROM, Normal Capillary Refill, Normal Inspection. absent : Calf Tenderness, Joint Swelling, Pedal Edema, Tenderness - Back Exam Back Exam: NORMAL INSPECTION - Neurological Exam Neurological Exam: Alert, Awake, CN II-XII Intact, Normal Gait, Oriented x3 - Psychiatric Exam Psychiatric exam: Normal Affect, Normal Mood - Skin Skin Exam: Dry, Intact, Normal Color, Warm Assessment and Plan - Assessment and Plan (Free Text) Assessment: 72 year old AA female with a past medical history significant for HTN, IDDM2, and cognitive impairment who presented with non-productive cough for 2 months with intermittent wheezing. She is currently being treated for acute bronchitis as well as her chronic conditions. Plan: 1. Acute Bronchitis -CT Chest showed bronchial wall thickening, thickened distal esophagus, questionable minimal hiatal hernia, left renal cyst and retained feces in colon -Chest X-ray showed no acute pulmonary disease -Influenza and Procalcitonin negative -Blood cultures with no growth for 24 hours -Echo pending -Leukocytosis of 29.6 and lactic acidosis of 3.3 without fevers, tachycardia, tachypnea or hypotension -IV Zithromax and IV Rocephin (Day 2) -Tapered IV Solu-Medrol to 20mg Q8 -Duonebs Q6 scheduled and Q2 PRN -Tylenol PRN for fever -Supplemental oxygen via NC at 2 L/min 2. History of DM2 with associated Neuropathy -Hemoglobin A1c: 7.9 -ISS-Low and Accuchecks ACHS -Levemir 20u SC HS -Gabapentin 300mg PO daily -Carbohydrate Consistent Diet -Business Professor consulted, all recommendations appreciated 3. History of HTN -Norvasc 5mg PO daily, HCTZ 25mg PO daily, Lopressor 50mg PO BID and high dose ASA 4. History of HLD -Lipitor 10mg PO daily GI Prophylaxis: Protonix DVT Prophylaxis: Heparin Patient seen and case discussed with attending, Dr. Ness. <Rosalina Ness - Last Filed: 01/18/18 14:31> Objective - Vital Signs/Intake and Output Vital Signs (last 24 hours): Temp Pulse Resp BP Pulse Ox 98.2 F 87 18 155/85 H 96 01/18/18 06:00 01/18/18 10:10 01/18/18 06:00 01/18/18 10:10 01/18/18 06:00 Intake and Output: 01/18/18 01/18/18 06:59 18:59 Intake Total 2671 Balance 2671 - Medications Medications: Current Medications Acetaminophen (Tylenol 325mg Tab) 650 mg PO Q4 PRN PRN Reason: Fever >100.4 F Albuterol/Ipratropium (Duoneb 3 Mg/0.5 Mg (3 Ml) Ud) 3 ml IH [id number] [facility] Last Admin: 01/18/18 13:45 Dose: 3 ml Albuterol/Ipratropium (Duoneb 3 Mg/0.5 Mg (3 Ml) Ud) 3 ml IH Q2H PRN PRN Reason: Shortness of Breath Amlodipine Besylate (Norvasc) 5 mg PO DAILY [facility] Last Admin: 01/18/18 10:09 Dose: 5 mg Aspirin (Aspirin) 325 mg PO DAILY [facility] Last Admin: 01/18/18 10:09 Dose: 325 mg Atorvastatin Calcium (Lipitor) 10 mg PO DIN [facility] Last Admin: 01/17/18 18:20 Dose: 10 mg Gabapentin (Neurontin) 300 mg PO DAILY [facility] PRN Reason: Protocol Last Admin: 01/18/18 10:09 Dose: 300 mg Heparin Sodium (Porcine) (Heparin) 5,000 units SC Q8 [facility] PRN Reason: Protocol Last Admin: 01/18/18 13:27 Dose: 5,000 units Hydrochlorothiazide (Hydrodiuril) 25 mg PO DAILY [facility] Last Admin: 01/18/18 10:09 Dose: 25 mg Ceftriaxone Sodium (Rocephin 1 Gram Ivpb) 1 gm in 100 mls @ 100 mls/hr IVPB DAILY [facility] PRN Reason: Protocol Last Admin: 01/18/18 10:10 Dose: 100 mls/hr Azithromycin (Zithromax 500mg In Ns) 500 mg in 250 mls @ 167 mls/hr IVPB DAILY [facility] PRN Reason: Protocol Last Admin: 01/18/18 10:56 Dose: 167 mls/hr Sodium Chloride (Sodium Chloride 0.9%) 1,000 mls @ 100 mls/hr IV .Q10H [facility] Last Admin: 01/18/18 07:11 Dose: 100 mls/hr Insulin Detemir (Levemir) 20 unit SC HS [facility] Last Admin: 01/18/18 00:35 Dose: 20 unit Insulin Human Regular (Humulin R Low) 0 units SC ACHS [facility] PRN Reason: Protocol Last Admin: 01/18/18 11:40 Dose: 4 units Methylprednisolone (Solu-Medrol) 20 mg IVP Q8 [facility] Last Admin: 01/18/18 13:26 Dose: 20 mg Metoprolol Tartrate (Lopressor) 50 mg PO BID [facility] Last Admin: 01/18/18 10:10 Dose: 50 mg Ondansetron HCl (Zofran Inj) 4 mg IVP Q4H PRN PRN Reason: Nausea/Vomiting Pantoprazole Sodium (Protonix Ec Tab) 40 mg PO 0600 [facility] Last Admin: 01/18/18 05:50 Dose: 40 mg - Labs Labs: 01/18/18 07:00 01/18/18 07:00 Attending/Attestation - Attestation I have personally seen and examined this patient.: Yes I have fully participated in the care of the patient.: Yes I have reviewed all pertinent clinical information, including history, physical exam and plan: Yes Notes (Text): 01/18/18 14:28 Attending note; Patient seen and examined with resident. Patient is a 72 -year-old female with PMHx of hypertension,, insulin dependent diabetes mellitus, hyperlipidemia, mild mental retardation presenting with non productive cough for 2 months. As per patient's sister, the cough has been getting worst and is now accompanied with wheezes. The patient failed outpatient therapy. currently on DuoNeb treatment, IV Solu-Medrol. X-rays negative for infiltrate. CT chest showed bronchial thickening and esophageal lining thickening. tolerating diet. No dysphagia.on Protonix. Leukocytosis; mostly secondary to steroids. blood culture is negative. Patient is afebrile and nontoxic. Currently on Rocephin and Zithromax for bronchitis. Monitor closely. repeat CBC in a.m.. Diabetes; continue insulin treatment. Upon discharge patient will follow-up with PMD Dr. Daniels. 01/18/18 14:29 01/18/18 14:31
[2018-01-18] MEDS ORDERED: TRAVATAN Z EYE OU SCH (22:00)
[2018-01-18] MEDS ORDERED: Non Formulary Medication (Travoprost [Travatan Z] 1 DROP) BOTHEYES SCH (22:00)
[2018-01-19] MEDS: Albuterol-Ipratrop 3 mg / 0.5 (3 ml) UD IH SCH ×4 (01:27→20:30)
[2018-01-19] MEDS: Pantoprazole 40 mg EC Tab PO SCH (05:48)
[2018-01-19] MEDS: MethylPREDNISolone 40 mg Vial IVP SCH ×2 (05:48→21:56)
[2018-01-19 07:24] LABS: BASO # 0.01 K/mm3 (0.0-2.0); CALCIUM 10.2 mg/dL (8.4-10.5); GRAN # 27.4 (1.4-6.5); GRAN % 90.4 % (50.0-68.0); HEMOGLOBIN 10.3 g/dL (12.0-16.0); LYMPH % 6.5 % (22.0-35.0); MEAN CELL VOLUME 85.4 fl (80.0-105.0); MEAN CORPUSCULAR HEMOGLOBIN 26.4 pg (25.0-35.0); MEAN CORPUSCULAR HGB CONC 30.9 g/dl (31.0-37.0); MEAN PLATELET VOLUME 9.8 fl (7.0-11.0); MONO % 3.1 % (1.0-6.0); RBC 3.9 10^6/uL (3.5-6.1); RED CELL DISTRIBUTION WIDTH 14.1 % (11.5-14.5)
[2018-01-19 07:30] LABS: WHITE BLOOD COUNT 30.3 10^3/ul (4.5-11.0)
[2018-01-19] MEDS: Insulin Reg-LOW-Coverage SC SCH ×4 (07:59→22:58)
[2018-01-19] MEDS: Azithromycin 500MG/NS 250ml 500 MG/250 ML BAG IVPB SCH (10:53)
[2018-01-19] MEDS: cefTRIAXone 1 gm 1 GM/100 ML BAG IVPB SCH (10:53)
--- NOTE | 2018-01-19 13:46 | CP.PCM.PN ---
<Gen Ramey - Last Filed: 01/19/18 13:41> Subjective - Date & Time of Evaluation Date of Evaluation: 01/19/18 Time of Evaluation: 13:41 - Subjective Subjective: edicine Progress Note: Patient seen and assessed at bedside. No acute events overnight noted by patient or nursing staff. Patient reports that her coughing has improved since admission and she now only experiences cough when she laughs for a prolonged amount of time. She denies any fevers, chills, headache, chest pain, SOB, abdominal pain, N/V/D/C, urinary changes, skin changes or any numbness/tingling/ weakness of any extremity. Objective - Vital Signs/Intake and Output Vital Signs (last 24 hours): Temp Pulse Resp BP Pulse Ox 98.4 F 78 18 152/81 H 93 L 01/19/18 07:37 01/19/18 10:54 01/19/18 07:37 01/19/18 10:54 01/19/18 07:37 Intake and Output: 01/19/18 01/19/18 06:59 18:59 Intake Total 1011 Balance 1011 - Medications Medications: Current Medications Acetaminophen (Tylenol 325mg Tab) 650 mg PO Q4 PRN PRN Reason: Fever >100.4 F Albuterol/Ipratropium (Duoneb 3 Mg/0.5 Mg (3 Ml) Ud) 3 ml IH [id number] [facility] Last Admin: 01/19/18 07:27 Dose: 3 ml Albuterol/Ipratropium (Duoneb 3 Mg/0.5 Mg (3 Ml) Ud) 3 ml IH Q2H PRN PRN Reason: Shortness of Breath Amlodipine Besylate (Norvasc) 5 mg PO DAILY [facility] Last Admin: 01/19/18 10:54 Dose: 5 mg Aspirin (Ecotrin) 81 mg PO DAILY [facility] Atorvastatin Calcium (Lipitor) 10 mg PO DIN [facility] Last Admin: 01/18/18 17:21 Dose: 10 mg Gabapentin (Neurontin) 300 mg PO DAILY [facility] PRN Reason: Protocol Last Admin: 01/19/18 10:53 Dose: 300 mg Heparin Sodium (Porcine) (Heparin) 5,000 units SC Q8 [facility] PRN Reason: Protocol Last Admin: 01/19/18 05:48 Dose: 5,000 units Home Med (Home Med) 1 unit OU AMHS [facility] Hydrochlorothiazide (Hydrodiuril) 25 mg PO DAILY [facility] Last Admin: 01/19/18 10:53 Dose: 25 mg Ceftriaxone Sodium (Rocephin 1 Gram Ivpb) 1 gm in 100 mls @ 100 mls/hr IVPB DAILY [facility] PRN Reason: Protocol Last Admin: 01/19/18 10:53 Dose: 100 mls/hr Azithromycin (Zithromax 500mg In Ns) 500 mg in 250 mls @ 167 mls/hr IVPB DAILY [facility] PRN Reason: Protocol Last Admin: 01/19/18 10:53 Dose: 167 mls/hr Insulin Detemir (Levemir) 20 unit SC HS [facility] Last Admin: 01/18/18 21:50 Dose: 20 unit Insulin Human Regular (Humulin R Low) 0 units SC ACHS [facility] PRN Reason: Protocol Last Admin: 01/19/18 12:48 Dose: 4 units Methylprednisolone (Solu-Medrol) 20 mg IVP Q12 [facility] Metoprolol Tartrate (Lopressor) 50 mg PO BID [facility] Last Admin: 01/19/18 10:54 Dose: 50 mg Montelukast Sodium (Singulair) 10 mg PO QPM [facility] Ondansetron HCl (Zofran Inj) 4 mg IVP Q4H PRN PRN Reason: Nausea/Vomiting Pantoprazole Sodium (Protonix Ec Tab) 40 mg PO 0600 [facility] Last Admin: 01/19/18 05:48 Dose: 40 mg - Labs Labs: 01/19/18 06:30 01/19/18 06:30 - Constitutional Appears: Non-toxic, No Acute Distress - Head Exam Head Exam: ATRAUMATIC, NORMOCEPHALIC - Eye Exam Eye Exam: EOMI, Normal appearance Pupil Exam: NORMAL ACCOMODATION, PERRL - ENT Exam ENT Exam: Mucous Membranes Moist, Normal Exam - Neck Exam Neck Exam: Full ROM, Normal Inspection. absent: Lymphadenopathy, Tenderness - Respiratory Exam Respiratory Exam: Clear to Ausculation Bilateral, NORMAL BREATHING PATTERN. absent: Accessory Muscle Use, Chest Wall Tenderness, Decreased Breath Sounds, Prolonged Expiratory Phase, Rales, Rhonchi, Wheezes, Respiratory Distress, Stridor - Cardiovascular Exam Cardiovascular Exam: REGULAR RHYTHM, RRR, +S1, +S2. absent: Bradycardia, Tachycardia, Clicks, Diastolic murmur, Gallop, Irregular Rhythm, JVD, Rubs, +S4 , Murmur - GI/Abdominal Exam GI & Abdominal Exam: Soft, Normal Bowel Sounds. absent: Distended, Firm, Guarding, Rigid, Tenderness, Rebound - Extremities Exam Extremities Exam: Full ROM, Normal Capillary Refill, Normal Inspection. absent : Calf Tenderness, Joint Swelling, Pedal Edema, Tenderness - Back Exam Back Exam: NORMAL INSPECTION - Neurological Exam Neurological Exam: Alert, Awake, CN II-XII Intact, Normal Gait, Oriented x3 - Psychiatric Exam Psychiatric exam: Normal Affect, Normal Mood - Skin Skin Exam: Dry, Intact, Normal Color, Warm Assessment and Plan - Assessment and Plan (Free Text) Assessment: 72 year old AA female with a past medical history significant for HTN, IDDM2, and cognitive impairment who presented with non-productive cough for 2 months with intermittent wheezing. She is currently being treated for acute bronchitis as well as her chronic medical conditions. Plan: 1. Acute Bronchitis -CT Chest showed bronchial wall thickening, thickened distal esophagus, questionable minimal hiatal hernia, left renal cyst and retained feces in colon -Chest X-ray showed no acute pulmonary disease -Influenza and Procalcitonin negative -Blood cultures with no growth for 48 hours -Echo pending -Leukocytosis of 30.3 and lactic acidosis of 3.3 without fevers, tachycardia, tachypnea or hypotension -IV Zithromax and IV Rocephin (Day 3) -Tapered IV Solu-Medrol to 20mg Q12 -Duonebs Q6 scheduled and Q2 PRN -Tylenol PRN for fever -Supplemental oxygen via NC at 2 L/min 2. History of DM2 with associated Neuropathy -Hemoglobin A1c: 7.9 -ISS-Low and Accuchecks ACHS -Levemir 20u SC HS -Gabapentin 300mg PO daily -Carbohydrate Consistent Diet -Pattern Finisher consulted, all recommendations appreciated 3. History of HTN -Norvasc 5mg PO daily, HCTZ 25mg PO daily, Lopressor 50mg PO BID and high dose ASA 4. History of HLD -Lipitor 10mg PO daily 5. Esophageal Thickening -CT Chest findings noted above -Will recommend outpatient GI follow up -Protonix 40mg PO daily GI Prophylaxis: Protonix DVT Prophylaxis: Heparin Patient seen and case discussed with attending, Dr. Marco A Marques. <Marco A Marques - Last Filed: 01/19/18 17:45> Objective - Vital Signs/Intake and Output Vital Signs (last 24 hours): Temp Pulse Resp BP Pulse Ox 98.4 F 78 18 152/81 H 93 L 01/19/18 07:37 01/19/18 10:54 01/19/18 07:37 01/19/18 10:54 01/19/18 07:37 Intake and Output: 01/19/18 01/19/18 06:59 18:59 Intake Total 1011 980 Balance 1011 980 - Medications Medications: Current Medications Acetaminophen (Tylenol 325mg Tab) 650 mg PO Q4 PRN PRN Reason: Fever >100.4 F Albuterol/Ipratropium (Duoneb 3 Mg/0.5 Mg (3 Ml) Ud) 3 ml IH [id number] [facility] Last Admin: 01/19/18 13:58 Dose: 3 ml Albuterol/Ipratropium (Duoneb 3 Mg/0.5 Mg (3 Ml) Ud) 3 ml IH Q2H PRN PRN Reason: Shortness of Breath Amlodipine Besylate (Norvasc) 5 mg PO DAILY [facility] Last Admin: 01/19/18 10:54 Dose: 5 mg Aspirin (Ecotrin) 81 mg PO DAILY [facility] Atorvastatin Calcium (Lipitor) 10 mg PO DIN [facility] Last Admin: 01/18/18 17:21 Dose: 10 mg Gabapentin (Neurontin) 300 mg PO DAILY [facility] PRN Reason: Protocol Last Admin: 01/19/18 10:53 Dose: 300 mg Heparin Sodium (Porcine) (Heparin) 5,000 units SC Q8 [facility] PRN Reason: Protocol Last Admin: 01/19/18 05:48 Dose: 5,000 units Home Med (Home Med) 0 unit OU HS [facility] Hydrochlorothiazide (Hydrodiuril) 25 mg PO DAILY [facility] Last Admin: 01/19/18 10:53 Dose: 25 mg Ceftriaxone Sodium (Rocephin 1 Gram Ivpb) 1 gm in 100 mls @ 100 mls/hr IVPB DAILY [facility] PRN Reason: Protocol Last Admin: 01/19/18 10:53 Dose: 100 mls/hr Azithromycin (Zithromax 500mg In Ns) 500 mg in 250 mls @ 167 mls/hr IVPB DAILY [facility] PRN Reason: Protocol Last Admin: 03/26/18 10:53 Dose: 167 mls/hr Insulin Detemir (Levemir) 20 unit SC HS [facility] Last Admin: 01/18/18 21:50 Dose: 20 unit Insulin Human Regular (Humulin R Low) 0 units SC ACHS [facility] PRN Reason: Protocol Last Admin: 01/19/18 12:48 Dose: 4 units Methylprednisolone (Solu-Medrol) 20 mg IVP Q12 [facility] Metoprolol Tartrate (Lopressor) 50 mg PO BID [facility] Last Admin: 01/19/18 10:54 Dose: 50 mg Montelukast Sodium (Singulair) 10 mg PO QPM [facility] Ondansetron HCl (Zofran Inj) 4 mg IVP Q4H PRN PRN Reason: Nausea/Vomiting Pantoprazole Sodium (Protonix Ec Tab) 40 mg PO 0600 [facility] Last Admin: 01/19/18 05:48 Dose: 40 mg - Labs Labs: 01/19/18 06:30 01/19/18 06:30 Attending/Attestation - Attestation I have personally seen and examined this patient.: Yes I have fully participated in the care of the patient.: Yes I have reviewed all pertinent clinical information, including history, physical exam and plan: Yes Notes (Text): I have seen and examined patient with the resident. Agree with the above note with the following additions/ exceptions: Briefly this is 72 year old female with history of hypertension, IDDM, hyperlipidemia, mild mental retardation who came for evaluation of cough, wheezing and found to have acute bronchitis. The patient failed outpatient therapy. Today she feels better. Still have cough however only when she laughs. Continue duonebs, solumedrol taper and singulair. X-rays negative for infiltrate. CT chest showed bronchial thickening and esophageal lining thickening. She is on protonix. Leukocytosis is probably mostly secondary to steroids. Blood culture is negative. Patient is afebrile and nontoxic. Currently on Rocephin and Zithromax for bronchitis. Continue insulin for IDDM. Upon discharge patient will follow-up with PMD Dr. Daniels. Dr Marco A Marques
[2018-01-19] MEDS: Insulin Detemir 100 units/ml Vial (Levemir) SC SCH (21:55)
[2018-01-19] MEDS ORDERED: TRAVATAN EYE DROPS OU SCH (22:00)
[2018-01-20] MEDS: Albuterol-Ipratrop 3 mg / 0.5 (3 ml) UD IH SCH ×3 (02:52→14:42)
[2018-01-20] MEDS: Pantoprazole 40 mg EC Tab PO SCH (06:09)
[2018-01-20 07:23] LABS: BASO # 0.02 K/mm3 (0.0-2.0); BASO % 0.1 % (0.0-3.0); GRAN # 17.52 (1.4-6.5); GRAN % 87.4 % (50.0-68.0); HEMOGLOBIN 10.7 g/dL (12.0-16.0); LYMPH # 1.8 (1.2-3.4); LYMPH % 8.7 % (22.0-35.0); MEAN CELL VOLUME 85.9 fl (80.0-105.0); MEAN CORPUSCULAR HEMOGLOBIN 26.5 pg (25.0-35.0); MEAN CORPUSCULAR HGB CONC 30.8 g/dl (31.0-37.0); MEAN PLATELET VOLUME 9.7 fl (7.0-11.0); MONO # 0.8 (0.1-0.6); MONO % 3.8 % (1.0-6.0); RBC 4.04 10^6/uL (3.5-6.1); WHITE BLOOD COUNT 20.1 10^3/ul (4.5-11.0)
[2018-01-20 07:49] LABS: CALCIUM 9.5 mg/dL (8.4-10.5)
[2018-01-20] MEDS: Insulin Reg-LOW-Coverage SC SCH ×2 (07:58→11:46)
[2018-01-20 09:01] VITALS: BP 167/87; PULSE 70; RESP 20; TEMP 98.6; O2SAT 98
[2018-01-20] MEDS: MethylPREDNISolone 40 mg Vial IVP SCH (10:36)
[2018-01-20] MEDS: cefTRIAXone 1 gm 1 GM/100 ML BAG IVPB SCH (10:39)
[2018-01-20] MEDS: Azithromycin 500MG/NS 250ml 500 MG/250 ML BAG IVPB SCH (11:38)
--- NOTE | 2018-01-20 14:52 | CARD ---
APPROVED REPORT EXAM: Two-dimensional and M-mode echocardiogram with Doppler and color Doppler. INDICATION R/O CHF 2D DIMENSIONS Left Atrium (2D)4.2 (1.6-4.0cm)IVSd0.9 (0.7-1.1cm) LVDd4.5 (3.9-5.9cm)PWd1.2 (0.7-1.1cm) LVDs2.8 (2.5-4.0cm)FS (%) 38.6 % LVEF (%)69.1 (>50%) M-Mode DIMENSIONS Aortic Root2.70 (2.2-3.7cm)Aortic Cusp Exc.1.60 (1.5-2.0cm) Aortic Valve AoV Peak Bciudvsn338.0cm/sAoV VTI44.5cmAO Peak GR.19mmHg LVOT Peak Rixtvwks543.0cm/sLVOT VTI32.10cmAO Mean GR.9mmHg Mitral Valve MV E Kyiuwfvk96.5cm/sMV A Grxuaqms981.0cm/sE/A ratio0.8 TDI Lateral E' Peak V8.68cm/sMedial E' Peak V6.04cm/sE/Lateral E'9.3 E/Medial E'13.3 Pulmonary Valve PV Peak Ocqnnuel28.0cm/sPV Peak Grad.2mmHg Tricuspid Valve TR Peak Ccnfqapf900iu/sRAP [id number] Peak Gr.25mmHg [id number] LEFT VENTRICLE The left ventricle is normal size. There is borderline concentric left ventricular hypertrophy. The left ventricular function is normal. The left ventricular ejection fraction is within the normal range. There is normal LV segmental wall motion. Transmitral Doppler flow pattern is Grade I-abnormal relaxation pattern. RIGHT VENTRICLE The right ventricle is normal size. There is normal right ventricular wall thickness. The right ventricular systolic function is normal. ATRIA The left atrium size is normal. The right atrium size is normal. AORTIC VALVE The aortic valve is mildly sclerotic. There is trace valvular aortic stenosis. MITRAL VALVE The mitral valve is mildly thickened. Mitral regurgitation is trace. TRICUSPID VALVE There is trace tricuspid regurgitation. There is mild pulmonary hypertension. GREAT VESSELS The aortic root is normal in size. The IVC is normal in size and collapses >50% with inspiration. <Conclusion> The left ventricle is normal size. There is borderline concentric left ventricular hypertrophy. The left ventricular function is normal. The left ventricular ejection fraction is within the normal range. There is normal LV segmental wall motion. Transmitral Doppler flow pattern is Grade I-abnormal relaxation pattern. The aortic valve is mildly sclerotic. There is mild pulmonary hypertension.
== END 2018-01-20 15:23 | disposition home or self-care (01) | DRG 202 ==
LOC: ED 10:10 → ERH 14:27 → OBSVTOIN 15:25 → 5RSO 16:09
PROVIDERS: ADMIT Internal Medicine; ATTEND Hospitalist
PROC: 3E0F7GC Introduction of Other Therapeutic Substance into Respiratory Tract, Via Natural or Artificial Opening (ICD-10-PCS; principal; 2018-01-17)
DX: J20.9 Acute bronchitis, unspecified (principal); J44.0 Chronic obstructive pulmonary disease with (acute) lower respiratory infection; I10 Essential (primary) hypertension; E11.40 Type 2 diabetes mellitus with diabetic neuropathy, unspecified; D72.829 Elevated white blood cell count, unspecified; T38.0X5A Adverse effect of glucocorticoids and synthetic analogues, initial encounter; E78.5 Hyperlipidemia, unspecified; F70 Mild intellectual disabilities; Z79.4 Long term (current) use of insulin; Z79.82 Long term (current) use of aspirin; Z90.710 Acquired absence of both cervix and uterus

== ENCOUNTER 2018-08-31 07:46 | Observation (INO) | payer MEDICARE, OTHER ==
[2018-08-31 08:57] LABS: BASO # 0.02 K/mm3 (0.0-2.0); BASO % 0.2 % (0.0-3.0); EOS # 0.5 (0.0-0.7); EOS % 3.9 % (1.5-5.0); GRAN # 9.41 (1.4-6.5); GRAN % 73.9 % (50.0-68.0); HEMOGLOBIN 11.5 g/dL (12.0-16.0); LYMPH # 2.2 (1.2-3.4); LYMPH % 17.3 % (22.0-35.0); MEAN CELL VOLUME 85.6 fl (80.0-105.0); MEAN CORPUSCULAR HEMOGLOBIN 27.1 pg (25.0-35.0); MEAN CORPUSCULAR HGB CONC 31.6 g/dl (31.0-37.0); MEAN PLATELET VOLUME 9.8 fl (7.0-11.0); MONO # 0.6 (0.1-0.6); MONO % 4.7 % (1.0-6.0); RBC 4.25 10^6/uL (3.5-6.1); RED CELL DISTRIBUTION WIDTH 13.3 % (11.5-14.5); WHITE BLOOD COUNT 12.7 10^3/uL (4.5-11.0)
--- NOTE | 2018-08-31 08:57 | ED PDOC ---
Arrival/HPI - General Chief Complaint: Altered Mental Status Time Seen by Provider: 08/31/18 08:08 Historian: Patient, EMS - History of Present Illness Narrative History of Present Illness (Text): 08/31/18 08:14 72 year old female, with past medical history of htn, insulin dependent diabetes mellitus, and hld, presents to the Emergency department via EMS for evaluation of hypoglycemia prior to arrival. As per EMS, sister found patient with altered mental status this morning and subsequently called 911. Upon ALS arrival, patient's appeared lethargic and had a blood sugar of 38 mg/dL. Patient was subsequently given d50 en route with improvement to symptoms. Upon arrival to Emergency department, patient expresses completely resolved symptoms with no medical complaints. Patient informs taking her insulin last night with no diet intake following the dosage. Patient states similar symptoms in the past for poor diet compliance. Patient denies any fevers, chills, headache, dizziness, chest pain, shortness of breath, cough, abdominal pain, nausea, vomiting, diarrhea, back pain, neck pain, or any other complaints. PMD: Dr. Alvarez Time/Duration: Prior to Arrival Symptom Onset: Gradual Symptom Course: Resolved Activities at Onset: Light Context: Home Past Medical History - Provider Review Nursing Documentation Reviewed: Yes - Infectious Disease Hx of Infectious Diseases: None - Tetanus Immunization Tetanus Immunization: Unknown - Reproductive Menopause: Yes - Cardiac Hx Hypertension: Yes - Pulmonary Hx Chronic Obstructive Pulmonary Disease (COPD): Yes - Neurological Hx Neurological Disorder: No - HEENT Hx HEENT Disorder: No - Renal Hx Renal Disorder: No - Endocrine/Metabolic Hx Diabetes Mellitus Type 2: Yes - Hematological/Oncological Hx Blood Disorders: No - Integumentary Hx Dermatological Disorder: No - Musculoskeletal/Rheumatological Hx Musculoskeletal Disorders: No - Gastrointestinal Hx Gastrointestinal Disorders: No - Genitourinary/Gynecological Hx Genitourinary Disorders: No - Psychiatric Hx Psychophysiologic Disorder: No Hx Substance Use: No - Surgical History Hx Hysterectomy: Yes - Anesthesia Hx Anesthesia: No - Suicidal Assessment Feels Threatened In Home Enviroment: No Family/Social History - Physician Review Nursing Documentation Reviewed: Yes Family/Social History: Unknown Family HX Smoking Status: Never Smoked Hx Alcohol Use: No Hx Substance Use: No Allergies/Home Meds Allergies/Adverse Reactions: Allergies No Known Allergies Allergy (Verified 01/17/18 10:16) Home Medications: Home Meds Medication Instructions Recorded Confirmed Lovastatin 40 mg PO DAILY 03/11/14 01/17/18 Gabapentin [Neurontin] 300 mg PO DAILY 12/20/17 01/17/18 GlipiZIDE [Glucotrol] 5 mg PO TID 12/20/17 01/17/18 Insulin Glargine, Recombina 25 unit INJ DAILY 12/20/17 01/17/18 [Lantus] Acarbose [Precose 50 mg Tab] 50 mg PO TID 01/17/18 01/17/18 Aspirin 325 mg PO DAILY 01/17/18 01/17/18 Hydrochlorothiazide [Microzide] 25 mg PO DAILY 01/17/18 01/17/18 Loratadine [Allerclear] 10 mg PO DAILY 01/17/18 01/17/18 Metoprolol Tartrate [Lopressor] 50 mg PO BID 01/17/18 01/17/18 amLODIPine [Norvasc] 5 mg DAILY 01/17/18 01/17/18 Travoprost [Travatan Z] 1 drop BOTHEYES AMHS 01/18/18 01/18/18 Montelukast Sodium [Singulair] 10 mg PO QPM 01/19/18 01/19/18 Review of Systems - Physician Review All systems were reviewed & negative as marked: Yes - Review of Systems Cardiovascular: absent: Chest Pain Neurological: absent: Headache Endocrine: Other (hypolglycemia) Physical Exam - Physical Exam Narrative Physical Exam (Text): 08/31/18 08:14 Constitutional: No acute distress. Head: Normocephalic. Atraumatic. Eyes: PERRL. ENT: Moist mucous membranes. Neck: Supple. Cardiovascular: Regular rate. Chest: No tenderness. Respiratory: Clear to auscultation bilaterally. GI: Soft. Nontender. Nondistended. Back: No CVA tenderness. Musculoskeletal: No tenderness or swelling of extremities. Skin: No rash. Neurologic: Alert, no focal deficit. Vital Signs Reviewed: Yes Vital Signs Temp Pulse Resp BP Pulse Ox 08/31/18 07:57 97.9 F 57 L 18 151/66 H 100 Temperature: Afebrile Blood Pressure: Normal Pulse: Regular Respiratory Rate: Normal Appearance: Positive for: Well-Appearing, Non-Toxic, Comfortable Pain Distress: None Mental Status: Positive for: Alert and Oriented X 3 Finger Stick Blood Glucose: 140 Medical Decision Making ED Course and Treatment: 08/31/18 08:14 Impression: 72 year old female presents to the Emergency department for evaluation of hypoglycemia prior to arrival. Differential Diagnosis included but are not limited to: Hypoglycemia Plan: -- EKG -- Labs -- Chest X-ray -- Urine Culture -- Urinalysis -- Reassess and disposition Prior Visits: Notes and results from previous visits were reviewed. Progress Notes: 08/31/18 08:14 EKG: Ordered, reviewed, and independently interpreted the EKG. Rate : 60 BPM Rhythm : NSR Interpretation : No ST-segment elevations or depressions, no T-wave inversions, normal intervals. 08/31/18 08:15 Patient medications were reviewed. Janumet and Glipizide were noted as active medications. - RAD Interpretation Radiology Orders: 08/31/18 08:18 CHEST PORTABLE [RAD] Stat - EKG Interpretation Interpreted by ED Physician: Yes Type: 12 lead EKG - Scribe Statement The provider has reviewed the documentation as recorded by the Scribe Gertrudis Rice. All medical record entries made by the Scribe were at my direction and personally dictated by me. I have reviewed the chart and agree that the record accurately reflects my personal performance of the history, physical exam, medical decision making, and the department course for this patient. I have also personally directed, reviewed, and agree with the discharge instructions and disposition. Disposition/Present on Arrival - Present on Arrival Any Indicators Present on Arrival: No History of DVT/PE: No History of Uncontrolled Diabetes: No Urinary Catheter: No History of Decub. Ulcer: No History Surgical Site Infection Following: None - Disposition Have Diagnosis and Disposition been Completed?: Yes Diagnosis: Hypoglycemia Disposition: HOSPITALIZED Disposition Time: 09:22 Patient Plan: Observation, Telemetry Condition: FAIR Forms: [employer] (Senegalese)
[2018-08-31 09:01] LABS: ALB/GLOB RATIO 1.2 (1.1-1.8); ALBUMIN 4.4 g/dL (3.0-4.8); CALCIUM 9.4 mg/dL (8.4-10.5)
[2018-08-31 09:28] LABS: URINE BILIRUBIN NEGATIVE (NEGATIVE); URINE BLOOD SMALL (NEGATIVE); URINE GLUCOSE (UA) 100 mg/dL (NEGATIVE); URINE LEUKOCYTE ESTERASE NEGATIVE Leu/uL (NEGATIVE); URINE PROTEIN NEGATIVE mg/dL (<30 mg/dL); URINE UROBILINOGEN 0.2 E.U./dL (<1 E.U./dL)
[2018-08-31 09:30] LABS: URINE APPEARANCE CLEAR (CLEAR); URINE COLOR YELLOW (YELLOW)
[2018-08-31 09:34] LABS: URINE BACTERIA FEW (NEG); URINE WBC 0 - 2 /hpf (0-6)
[2018-08-31] MEDS ORDERED: Dextrose 50% SYRINGE Inj (50 ml) IV PRN (10:16)
--- NOTE | 2018-08-31 11:27 | RAD ---
Date of service: 08/31/2018 HISTORY: hypoglycemia COMPARISON: 01/17/2018 FINDINGS: LUNGS: No active pulmonary disease. PLEURA: No significant pleural effusion identified, no pneumothorax apparent. CARDIOVASCULAR: No aortic atherosclerotic calcification present. Normal cardiac size. No pulmonary vascular congestion. OSSEOUS STRUCTURES: No significant abnormalities. VISUALIZED UPPER ABDOMEN: Normal. OTHER FINDINGS: None. IMPRESSION: No active disease.
[2018-08-31] MEDS: Insulin Lispro (humaLOG) LOW Coverage SC SCH ×3 (12:10→22:22)
--- NOTE | 2018-08-31 12:57 | CARD ---
APPROVED REPORT Date of service: 08/31/2018 EKG Measurement Heart [id number] ID [id number] <Conclusion> Sinus bradycardia with 1st degree AV block Nonspecific T wave abnormality
[2018-08-31] MEDS ORDERED: Dextrose 5%/0.45% NS 1,000 ML IV SCH (13:30)
--- NOTE | 2018-08-31 13:48 | CP.PCM.HP ---
<Matt Schmitz - Last Filed: 08/31/18 14:24> History of Present Illness - History of Present Illness History of Present Illness: Art Torresrenetta PGY2 - IM Resident - H&P for Hospitalist Service CC: Hypoglycemia HPI: 72 year old AA female with past medical history of HTN, IDDM, HLD who presented to [facility] ED via EMS with AMS secondary to hypoglycemia. Reports per family indicate patient's sister found her with altered mentation early in the morning. Family indicated patient was with limited response to questioning and lethargic. Upon arrival EMS reported blood glucose was 38 mg/dL. She was given d50 en route to [facility] hospital with improvement in her mentation. Patient was evaluated in [facility] ED with significant improvement in her symptoms per family and patient. Patient indicates poor oral nutrition intact yesterday afternoon and evening while maintaining her insulin and diabetic medication regiment. Patient admits to having previous episodes of hypoglycemia due to poor nutrition compliance. At time of interview patient is noted to be eating breakfast without difficulty. She denies fatigue, headache, dizziness, chest pain, shortness of breath, abdominal pain, nausea, vomiting, fever, chills. PMH: IDDM2, HTN, HLD, Diabetic Neuropathy PSH: hysterectomy FMH: Non contributory SOCH: Tobacco: Denies, ETOH: Denies, ID: Denies. Walks with a cane. ALL: NKDA MEDS: -Janumet 50mg/500mg PO Daily -Glipizide 5mg PO TID -Nifidepine ER 60mg PO Daily -Carbos 50mg PO TID -ASA 81mg PO Daily -Lopressor 50mg PO BID -Gabapentin 300mg PO TID -Lantus 36 units INJ QHS PMD: Dr. Alvarez Present on Admission - Present on Admission Any Indicators Present on Admission: No Review of Systems - Review of Systems All systems: reviewed and no additional remarkable complaints except (as mentioned in HPI) Past Patient History - Infectious Disease Hx of Infectious Diseases: None - Tetanus Immunizations Tetanus Immunization: Unknown - Past Medical History & Family History Past Medical History?: Yes - Past Social History Smoking Status: Never Smoked - CARDIAC Hx Hypertension: Yes - PULMONARY Hx Chronic Obstructive Pulmonary Disease (COPD): Yes - NEUROLOGICAL Hx Neurological Disorder: No - HEENT Hx HEENT Problems: No - RENAL Hx Chronic Kidney Disease: No - ENDOCRINE/METABOLIC Hx Diabetes Mellitus Type 2: Yes - HEMATOLOGICAL/ONCOLOGICAL Hx Blood Disorders: No - INTEGUMENTARY Hx Dermatological Problems: No - MUSCULOSKELETAL/RHEUMATOLOGICAL Hx Musculoskeletal Disorders: No - GASTROINTESTINAL Hx Gastrointestinal Disorders: No - GENITOURINARY/GYNECOLOGICAL Hx Genitourinary Disorders: No - PSYCHIATRIC Hx Psychophysiologic Disorder: No Hx Substance Use: No - SURGICAL HISTORY Hx Hysterectomy: Yes - ANESTHESIA Hx Anesthesia: No Meds Allergies/Adverse Reactions: Allergies Allergy/AdvReac Type Severity Reaction Status Date / Time No Known Allergies Allergy Verified 01/17/18 10:16 Physical Exam - Constitutional Appears: Non-toxic, No Acute Distress - Head Exam Head Exam: ATRAUMATIC, NORMAL INSPECTION, NORMOCEPHALIC - Eye Exam Eye Exam: EOMI, PERRL - ENT Exam ENT Exam: Mucous Membranes Moist - Respiratory Exam Respiratory Exam: Clear to Auscultation Bilateral, NORMAL BREATHING PATTERN - Cardiovascular Exam Cardiovascular Exam: REGULAR RHYTHM, +S1, +S2 - GI/Abdominal Exam GI & Abdominal Exam: Normal Bowel Sounds, Soft - Extremities Exam Extremities exam: Negative for: calf tenderness, pedal edema, tenderness - Neurological Exam Neurological exam: Alert, CN II-XII Intact, Normal Gait, Oriented x3 - Psychiatric Exam Psychiatric exam: Normal Affect, Normal Mood - Skin Skin Exam: Dry, Warm Results - Vital Signs Recent Vital Signs: Last Vital Signs Temp 97.9 F 08/31/18 07:57 Pulse 65 08/31/18 13:15 Resp 17 08/31/18 13:15 BP 147/85 08/31/18 13:15 Pulse Ox 98 08/31/18 13:15 - Labs Result Diagrams: 08/31/18 08:37 08/31/18 08:37 Labs: Laboratory Results - last 24 hr 08/31/18 08/31/18 08/31/18 08:00 08:18 08:37 WBC 12.7 H RBC 4.25 Hgb 11.5 L Hct 36.4 MCV 85.6 MCH 27.1 MCHC 31.6 RDW 13.3 Plt Count 339 MPV 9.8 Gran % 73.9 H Lymph % (Auto) 17.3 L Clare % (Auto) 4.7 Eos % (Auto) 3.9 Baso % (Auto) 0.2 Gran # 9.41 H Lymph # (Auto) 2.2 Clare # (Auto) 0.6 Eos # (Auto) 0.5 Baso # (Auto) 0.02 Sodium Potassium Chloride Carbon Dioxide Anion Gap BUN Creatinine Est GFR ( Amer) Est GFR (Non-Af Amer) POC Glucose (mg/dL) Random Glucose Calcium Phosphorus 4.0 Magnesium 1.7 Total Bilirubin AST ALT Alkaline Phosphatase Total Protein Albumin Globulin Albumin/Globulin Ratio Urine Color Yellow Urine Appearance Clear Urine pH 6.0 Ur Specific Capac 1.010 Urine Protein Negative Urine Glucose (UA) 100 H Urine Ketones Negative Urine Blood Small H Urine Nitrate Negative Urine Bilirubin Negative Urine Urobilinogen 0.2 Ur Leukocyte Esterase Negative Urine RBC 5 - 10 Urine WBC 0 - 2 Ur Epithelial Cells 4 - 5 Urine Bacteria Few 08/31/18 08/31/18 08/31/18 08:37 09:50 12:09 WBC RBC Hgb Hct MCV MCH MCHC RDW Plt Count MPV Gran % Lymph % (Auto) Clare % (Auto) Eos % (Auto) Baso % (Auto) Gran # Lymph # (Auto) Clare # (Auto) Eos # (Auto) Baso # (Auto) Sodium 142 Potassium 3.9 Chloride 100 Carbon Dioxide 29 Anion Gap 17 BUN 25 H Creatinine 1.1 Est GFR ( Amer) 59 Est GFR (Non-Af Amer) 49 POC Glucose (mg/dL) 32 L* 78 Random Glucose 71 Calcium 9.4 Phosphorus Magnesium Total Bilirubin 0.4 AST 30 ALT 18 Alkaline Phosphatase 64 Total Protein 8.1 Albumin 4.4 Globulin 3.8 Albumin/Globulin Ratio 1.2 Urine Color Urine Appearance Urine pH Ur Specific Capac Urine Protein Urine Glucose (UA) Urine Ketones Urine Blood Urine Nitrate Urine Bilirubin Urine Urobilinogen Ur Leukocyte Esterase Urine RBC Urine WBC Ur Epithelial Cells Urine Bacteria Assessment & Plan - Assessment and Plan (Free Text) Assessment: 72 year old AA female with past medical history of HTN, IDDM, HLD who presented to [facility] ED via EMS with AMS secondary to hypoglycemia. Patient admitted for observation overnight and adjustment of her medications. Plan: Hypoglycemia - Etiology: Likely poor nutrition intake in conjunction of routine diabetic medication regiment vs. medication non-compliance - bg per EMS - 1 amp D50 given in field - ACHS - Holding oral anti-glycemic at this time - Insulin sliding scale - low - Will hold off on endocrinology consult and further testing at this time secondary to current patient clinical history - Hypoglycemia protocol IDDM - Last known HgA1C of 7.9 in - Recheck HgA1c during this admission - ACHS - ISS low - Hypoglycemia protocol - Carb consistent diet HTN - BP trended and appreciated, continue to monitor - Continue with home Lopressor 50mg BID Diabetic Neuropathy - Gabapentin 300mg TID GI/DVT ppx - Protonix - Heparin 5000 SC Q12 Patient seen, case and plan discussed with attending, Dr. Valdes - Date & Time Date: 08/31/18 Time: 13:49 <Estefanía Valdes - Last Filed: 08/31/18 14:46> Results - Vital Signs Recent Vital Signs: Last Vital Signs Temp 97.4 F L 08/31/18 13:45 Pulse 62 08/31/18 13:45 Resp 18 08/31/18 13:45 BP 159/87 H 08/31/18 13:45 Pulse Ox 100 08/31/18 13:45 - Labs Result Diagrams: 08/31/18 08:37 08/31/18 08:37 Labs: Laboratory Results - last 24 hr 08/31/18 08/31/18 08/31/18 07:49 08:00 08:18 WBC RBC Hgb Hct MCV MCH MCHC RDW Plt Count MPV Gran % Lymph % (Auto) Clare % (Auto) Eos % (Auto) Baso % (Auto) Gran # Lymph # (Auto) Clare # (Auto) Eos # (Auto) Baso # (Auto) Sodium Potassium Chloride Carbon Dioxide Anion Gap BUN Creatinine Est GFR ( Amer) Est GFR (Non-Af Amer) POC Glucose (mg/dL) 140 H Random Glucose Calcium Phosphorus 4.0 Magnesium 1.7 Total Bilirubin AST ALT Alkaline Phosphatase Total Protein Albumin Globulin Albumin/Globulin Ratio Urine Color Yellow Urine Appearance Clear Urine pH 6.0 Ur Specific Capac 1.010 Urine Protein Negative Urine Glucose (UA) 100 H Urine Ketones Negative Urine Blood Small H Urine Nitrate Negative Urine Bilirubin Negative Urine Urobilinogen 0.2 Ur Leukocyte Esterase Negative Urine RBC 5 - 10 Urine WBC 0 - 2 Ur Epithelial Cells 4 - 5 Urine Bacteria Few 08/31/18 08/31/18 08/31/18 08:37 08:37 09:50 WBC 12.7 H RBC 4.25 Hgb 11.5 L Hct 36.4 MCV 85.6 MCH 27.1 MCHC 31.6 RDW 13.3 Plt Count 339 MPV 9.8 Gran % 73.9 H Lymph % (Auto) 17.3 L Clare % (Auto) 4.7 Eos % (Auto) 3.9 Baso % (Auto) 0.2 Gran # 9.41 H Lymph # (Auto) 2.2 Clare # (Auto) 0.6 Eos # (Auto) 0.5 Baso # (Auto) 0.02 Sodium 142 Potassium 3.9 Chloride 100 Carbon Dioxide 29 Anion Gap 17 BUN 25 H Creatinine 1.1 Est GFR ( Amer) 59 Est GFR (Non-Af Amer) 49 POC Glucose (mg/dL) 32 L* Random Glucose 71 Calcium 9.4 Phosphorus Magnesium Total Bilirubin 0.4 AST 30 ALT 18 Alkaline Phosphatase 64 Total Protein 8.1 Albumin 4.4 Globulin 3.8 Albumin/Globulin Ratio 1.2 Urine Color Urine Appearance Urine pH Ur Specific Capac Urine Protein Urine Glucose (UA) Urine Ketones Urine Blood Urine Nitrate Urine Bilirubin Urine Urobilinogen Ur Leukocyte Esterase Urine RBC Urine WBC Ur Epithelial Cells Urine Bacteria 08/31/18 12:09 WBC RBC Hgb Hct MCV MCH MCHC RDW Plt Count MPV Gran % Lymph % (Auto) Clare % (Auto) Eos % (Auto) Baso % (Auto) Gran # Lymph # (Auto) Clare # (Auto) Eos # (Auto) Baso # (Auto) Sodium Potassium Chloride Carbon Dioxide Anion Gap BUN Creatinine Est GFR ( Amer) Est GFR (Non-Af Amer) POC Glucose (mg/dL) 78 Random Glucose Calcium Phosphorus Magnesium Total Bilirubin AST ALT Alkaline Phosphatase Total Protein Albumin Globulin Albumin/Globulin Ratio Urine Color Urine Appearance Urine pH Ur Specific Capac Urine Protein Urine Glucose (UA) Urine Ketones Urine Blood Urine Nitrate Urine Bilirubin Urine Urobilinogen Ur Leukocyte Esterase Urine RBC Urine WBC Ur Epithelial Cells Urine Bacteria Attending/Attestation - Attestation I have personally seen and examined this patient.: Yes I have fully participated in the care of the patient.: Yes I have reviewed all pertinent clinical information: Yes Notes (Text): 08/31/18 14:34 72 year old female with past medical history of hypertension, diabetes and dyslipidemia who presented this morning with hypoglycemia. Will hold her glucotrol and metformin for now. Continue with insulin ss and dose her levemir accordingly. A1c level is ordered. Continue with home medications for hypertension, dyslipidemia and diabetic neuropathy. Estefanía Valdes MD Hospitalist.
[2018-08-31 14:59] VITALS: BMI 31.7
[2018-09-01 04:30] VITALS: RESP 20
[2018-09-01] MEDS ORDERED: Pantoprazole 40 mg EC Tab PO SCH (06:00)
[2018-09-01 06:39] LABS: ALB/GLOB RATIO 1.2 (1.1-1.8); CALCIUM 9.1 mg/dL (8.4-10.5)
[2018-09-01 07:02] LABS: BASO # 0.03 K/mm3 (0.0-2.0); BASO % 0.3 % (0.0-3.0); EOS # 0.4 (0.0-0.7); EOS % 3.7 % (1.5-5.0); GRAN # 6.53 (1.4-6.5); GRAN % 60.8 % (50.0-68.0); HEMOGLOBIN 10.8 g/dL (12.0-16.0); LYMPH # 3.1 (1.2-3.4); MEAN CELL VOLUME 85.4 fl (80.0-105.0); MEAN CORPUSCULAR HEMOGLOBIN 26.7 pg (25.0-35.0); MEAN CORPUSCULAR HGB CONC 31.2 g/dl (31.0-37.0); MEAN PLATELET VOLUME 9.6 fl (7.0-11.0); MONO # 0.7 (0.1-0.6); MONO % 6.2 % (1.0-6.0); RBC 4.05 10^6/uL (3.5-6.1); RED CELL DISTRIBUTION WIDTH 13.5 % (11.5-14.5); WHITE BLOOD COUNT 10.7 10^3/uL (4.5-11.0)
[2018-09-01 08:30] VITALS: TEMP 98; O2SAT 99
[2018-09-01] MEDS: Insulin Lispro (humaLOG) LOW Coverage SC SCH ×2 (08:54→11:26)
[2018-09-01 09:20] VITALS: BP 153/81
[2018-09-01] MEDS ORDERED: NIFEdipine 60 mg ER Tab PO SCH (10:00)
[2018-09-01 11:11] VITALS: PULSE 51
--- NOTE | 2018-09-01 22:55 | CP.PCM.DIS ---
Addendum entered and electronically signed by Homar Workman DO 09/01/18 22:58: Physical Exam: Gen: NAD. AAOx3 HEENT: NC/AT Cardio: RRR, normal s1/s2 Lungs: CTA b/l. No w/r/r Ext: no pitting edema, clubbing, or swelling. Original Note: <Homar Workman - Last Filed: 09/01/18 22:51> Provider - Provider Date of Admission: 08/31/18 09:37 Attending physician: Estefanía Valdes MD Time Spent in preparation of Discharge (in minutes): 35 Hospital Course - Lab Results Lab Results: Micro Results 08/31/18 08:18 Urine Urine Culture - Final 50-100,000 CFU/ML. MULTIPLE SPECIES. SUGGEST REPEAT SPECIMEN. Most Recent Lab Values WBC 10.7 10^3/uL (4.5-11.0) 09/01/18 06:00 RBC 4.05 10^6/uL (3.5-6.1) 09/01/18 06:00 Hgb 10.8 g/dL (12.0-16.0) L 09/01/18 06:00 Hct 34.6 % (36.0-48.0) L 09/01/18 06:00 MCV 85.4 fl (80.0-105.0) 09/01/18 06:00 MCH 26.7 pg (25.0-35.0) 09/01/18 06:00 MCHC 31.2 g/dl (31.0-37.0) 09/01/18 06:00 RDW 13.5 % (11.5-14.5) 09/01/18 06:00 Plt Count 405 10^3/uL (120.0-450.0) 09/01/18 06:00 MPV 9.6 fl (7.0-11.0) 09/01/18 06:00 Gran % 60.8 % (50.0-68.0) 09/01/18 06:00 Lymph % (Auto) 29.0 % (22.0-35.0) 09/01/18 06:00 [place] % (Auto) 6.2 % (1.0-6.0) H 09/01/18 06:00 Eos % (Auto) 3.7 % (1.5-5.0) 09/01/18 06:00 Baso % (Auto) 0.3 % (0.0-3.0) 09/01/18 06:00 Gran # 6.53 (1.4-6.5) H 09/01/18 06:00 Lymph # (Auto) 3.1 (1.2-3.4) 09/01/18 06:00 [place] # (Auto) 0.7 (0.1-0.6) H 09/01/18 06:00 Eos # (Auto) 0.4 (0.0-0.7) 09/01/18 06:00 Baso # (Auto) 0.03 K/mm3 (0.0-2.0) 09/01/18 06:00 Sodium 141 mmol/L (132-148) 09/01/18 06:00 Potassium 3.4 mmol/L (3.6-5.0) L 09/01/18 06:00 Chloride 101 mmol/L (98-107) 09/01/18 06:00 Carbon Dioxide 31 mmol/L (21-33) 09/01/18 06:00 Anion Gap 12 (10-20) 09/01/18 06:00 BUN 23 mg/dL (7-21) H 09/01/18 06:00 Creatinine 1.2 mg/dl (0.7-1.2) 09/01/18 06:00 Est GFR ( Amer) 54 09/01/18 06:00 Est GFR (Non-Af Amer) 44 09/01/18 06:00 POC Glucose (mg/dL) 138 mg/dL (65-110) H 09/01/18 11:10 Random Glucose 80 mg/dL (70-110) 09/01/18 06:00 Hemoglobin A1c 8.1 % (4.2-6.5) H 08/31/18 08:00 Calcium 9.1 mg/dL (8.4-10.5) 09/01/18 06:00 Phosphorus 4.0 mg/dL (2.5-4.5) 08/31/18 08:00 Magnesium 1.7 mg/dL (1.7-2.2) 08/31/18 08:00 Total Bilirubin 0.3 mg/dL (0.2-1.3) 09/01/18 06:00 AST 30 U/L (14-36) 09/01/18 06:00 ALT 21 U/L (7-56) 09/01/18 06:00 Alkaline Phosphatase 63 U/L (38-126) 09/01/18 06:00 Total Protein 7.5 g/dL (5.8-8.3) 09/01/18 06:00 Albumin 4.0 g/dL (3.0-4.8) 09/01/18 06:00 Globulin 3.4 gm/dL 09/01/18 06:00 Albumin/Globulin Ratio 1.2 (1.1-1.8) 09/01/18 06:00 Urine Color Yellow (YELLOW) 08/31/18 08:18 Urine Appearance Clear (CLEAR) 08/31/18 08:18 Urine pH 6.0 (4.7-8.0) 08/31/18 08:18 Ur Specific [place] 1.010 (1.005-1.035) 08/31/18 08:18 Urine Protein Negative mg/dL (<30 mg/dL) 08/31/18 08:18 Urine Glucose (UA) 100 mg/dL (NEGATIVE) H 08/31/18 08:18 Urine Ketones Negative mg/dL (NEGATIVE) 08/31/18 08:18 Urine Blood Small (NEGATIVE) H 08/31/18 08:18 Urine Nitrate Negative (NEGATIVE) 08/31/18 08:18 Urine Bilirubin Negative (NEGATIVE) 08/31/18 08:18 Urine Urobilinogen 0.2 E.U./dL (<1 E.U./dL) 08/31/18 08:18 Ur Leukocyte Esterase Negative [place]/uL (NEGATIVE) 08/31/18 08:18 Urine RBC 5 - 10 /hpf (0-2) 08/31/18 08:18 Urine WBC 0 - 2 /hpf (0-6) 08/31/18 08:18 Ur Epithelial Cells 4 - 5 /hpf (0-5) 08/31/18 08:18 Urine Bacteria Few (NEG) 08/31/18 08:18 - Hospital Course Hospital Course: Homar Workman, PGY1 Discharge Summary for Dr. Valdes 72 year old AA female with past medical history of HTN, IDDM, HLD who presented to [facility] via EMS with AMS secondary to hypoglycemia. Reports per family indicate patient's sister found her with altered mentation early in the morning. Family indicated patient was with limited response to questioning and lethargic. Upon arrival EMS reported blood glucose was 38 mg/dL. She was given d50 en route to [facility] hospital with improvement in her mentation. Patient was evaluated in [facility] ED with significant improvement in her symptoms per family and patient. Patient indicates poor oral nutrition intact while maintaining her insulin and diabetic medication regiment. Patient admits to having previous episodes of hypoglycemia due to poor nutrition compliance. At time of interview patient is noted to be eating breakfast without difficulty. She denies fatigue, headache, dizziness, chest pain, shortness of breath, abdominal pain, nausea, vomiting, fever, chills. Patient was admitted to medical team for hypoglycemia. She was started on ISS and her home diabetic medications were held. Her blood sugars improved the next day. IV fluids was discontinued and patient's sugars were under control. Patient is tolerating diet in the hospital. She is asymptomatic and does not endorse any complaints. She will c/w her metformin, Jenumet, and acarbose as prescribed upon discharge. However, her Levemir and Glipizide will be held due to risk of hy poglycemia. Patient is hemodynamically stable for discharge to home. Discharge Exam - Head Exam Head Exam: ATRAUMATIC, NORMAL INSPECTION, NORMOCEPHALIC Discharge Plan - Discharge Medications Prescriptions: Sitagliptin Phos/Metformin HCl [Janumet 50-500 mg Tablet] 1 each PO DAILY #1 tablet - Follow Up Plan Condition: FAIR Disposition: HOME/ ROUTINE Instructions: Low Blood Sugar, Adult (DC) Additional Instructions: Please continue taking your metformin, Jenumet, and acarbose as prescribed. Do not take your Levemir and Glipizide. Please follow up with your Primary Care Physician (Dr. Alvarez) within 3-4 days of discharge. Please return to the emergency department if symptoms reoccur. Referrals: Jenn Alvarez MD [Family Provider] - <Estefanía Valdes - Last Filed: 09/02/18 08:45> Provider - Provider Date of Admission: 08/31/18 09:37 Attending physician: Estefanía Valdes MD Hospital Course - Lab Results Lab Results: Micro Results 08/31/18 08:18 Urine Urine Culture - Final 50-100,000 CFU/ML. MULTIPLE SPECIES. SUGGEST REPEAT SPECIMEN. Most Recent Lab Values WBC 10.7 10^3/uL (4.5-11.0) 09/01/18 06:00 RBC 4.05 10^6/uL (3.5-6.1) 09/01/18 06:00 Hgb 10.8 g/dL (12.0-16.0) L 09/01/18 06:00 Hct 34.6 % (36.0-48.0) L 09/01/18 06:00 MCV 85.4 fl (80.0-105.0) 09/01/18 06:00 MCH 26.7 pg (25.0-35.0) 09/01/18 06:00 MCHC 31.2 g/dl (31.0-37.0) 09/01/18 06:00 RDW 13.5 % (11.5-14.5) 09/01/18 06:00 Plt Count 405 10^3/uL (120.0-450.0) 09/01/18 06:00 MPV 9.6 fl (7.0-11.0) 09/01/18 06:00 Gran % 60.8 % (50.0-68.0) 09/01/18 06:00 Lymph % (Auto) 29.0 % (22.0-35.0) 09/01/18 06:00 [place]offey % (Auto) 6.2 % (1.0-6.0) H 09/01/18 06:00 Eos % (Auto) 3.7 % (1.5-5.0) 09/01/18 06:00 Baso % (Auto) 0.3 % (0.0-3.0) 09/01/18 06:00 Gran # 6.53 (1.4-6.5) H 09/01/18 06:00 Lymph # (Auto) 3.1 (1.2-3.4) 09/01/18 06:00 [place] # (Auto) 0.7 (0.1-0.6) H 09/01/18 06:00 Eos # (Auto) 0.4 (0.0-0.7) 09/01/18 06:00 Baso # (Auto) 0.03 K/mm3 (0.0-2.0) 09/01/18 06:00 Sodium 141 mmol/L (132-148) 09/01/18 06:00 Potassium 3.4 mmol/L (3.6-5.0) L 09/01/18 06:00 Chloride 101 mmol/L (98-107) 09/01/18 06:00 Carbon Dioxide 31 mmol/L (21-33) 09/01/18 06:00 Anion Gap 12 (10-20) 09/01/18 06:00 BUN 23 mg/dL (7-21) H 09/01/18 06:00 Creatinine 1.2 mg/dl (0.7-1.2) 09/01/18 06:00 Est GFR ( Amer) 54 09/01/18 06:00 Est GFR (Non-Af Amer) 44 09/01/18 06:00 POC Glucose (mg/dL) 138 mg/dL (65-110) H 09/01/18 11:10 Random Glucose 80 mg/dL (70-110) 09/01/18 06:00 Hemoglobin A1c 8.1 % (4.2-6.5) H 08/31/18 08:00 Calcium 9.1 mg/dL (8.4-10.5) 09/01/18 06:00 Phosphorus 4.0 mg/dL (2.5-4.5) 08/31/18 08:00 Magnesium 1.7 mg/dL (1.7-2.2) 08/31/18 08:00 Total Bilirubin 0.3 mg/dL (0.2-1.3) 09/01/18 06:00 AST 30 U/L (14-36) 09/01/18 06:00 ALT 21 U/L (7-56) 09/01/18 06:00 Alkaline Phosphatase 63 U/L (38-126) 09/01/18 06:00 Total Protein 7.5 g/dL (5.8-8.3) 09/01/18 06:00 Albumin 4.0 g/dL (3.0-4.8) 09/01/18 06:00 Globulin 3.4 gm/dL 09/01/18 06:00 Albumin/Globulin Ratio 1.2 (1.1-1.8) 09/01/18 06:00 Urine Color Yellow (YELLOW) 08/31/18 08:18 Urine Appearance Clear (CLEAR) 08/31/18 08:18 Urine pH 6.0 (4.7-8.0) 08/31/18 08:18 Ur Specific [place] 1.010 (1.005-1.035) 08/31/18 08:18 Urine Protein Negative mg/dL (<30 mg/dL) 08/31/18 08:18 Urine Glucose (UA) 100 mg/dL (NEGATIVE) H 08/31/18 08:18 Urine Ketones Negative mg/dL (NEGATIVE) 08/31/18 08:18 Urine Blood Small (NEGATIVE) H 08/31/18 08:18 Urine Nitrate Negative (NEGATIVE) 08/31/18 08:18 Urine Bilirubin Negative (NEGATIVE) 08/31/18 08:18 Urine Urobilinogen 0.2 E.U./dL (<1 E.U./dL) 08/31/18 08:18 Ur Leukocyte Esterase Negative [place]/uL (NEGATIVE) 08/31/18 08:18 Urine RBC 5 - 10 /hpf (0-2) 08/31/18 08:18 Urine WBC 0 - 2 /hpf (0-6) 08/31/18 08:18 Ur Epithelial Cells 4 - 5 /hpf (0-5) 08/31/18 08:18 Urine Bacteria Few (NEG) 08/31/18 08:18 Attending/Attestation - Attestation I have personally seen and examined this patient.: Yes I have fully participated in the care of the patient.: Yes I have reviewed all pertinent clinical information, including history, physical exam and plan: Yes Notes (Text): 09/01/18 72 year old female with past medical history of hypertension, diabetes and dysl ipidemia who presented with hypoglycemia. Her levemir and glucotrol were held and her fingersticks were monitored. A1C level was 8.1. Fingersticks remained stable during hospital stay. She is discharged home to follow up with pmd. Recommended to continue with janumet and acarbose but hold levemir and glucotrol. Recommended to monitor fingersticks at home with log and present to pmd to office visit. Continue with home medications for hypertension, dyslipidemia and diabetic neuropathy. Estefanía Valdes MD Hospitalist.
== END 2018-09-01 13:35 | disposition home or self-care (01) ==
LOC: ED 07:46 → ERH 09:37 → 3RSO 13:29
PROVIDERS: ADMIT Internal Medicine; ATTEND Internal Medicine
DX: E11.649 Type 2 diabetes mellitus with hypoglycemia without coma (principal); E11.40 Type 2 diabetes mellitus with diabetic neuropathy, unspecified; E78.5 Hyperlipidemia, unspecified; I10 Essential (primary) hypertension; J44.9 Chronic obstructive pulmonary disease, unspecified; Z79.4 Long term (current) use of insulin; Z79.82 Long term (current) use of aspirin; Z90.710 Acquired absence of both cervix and uterus
CPT/HCPCS: 36415; 71045; 80053; 81001; 82948; 83036; 83735; 84100; 85025; 87086; 93005; 99285; G0378; J1644; J7042